=== PATIENT | female | born 1995 | race African-American/Black ===

== ENCOUNTER 2020-04-10 07:11 | Emergency (ER) | payer MEDICARE, MEDICAID, SELFPAY ==
--- NOTE | ~2020-04-10 | XR_ITS ---
EXAMINATION: XR chest 2V EXAM DATE: 04/10/2020 08:30 INDICATION: Midsternal chest pain. TECHNIQUE: Frontal and lateral projections of the chest obtained and reviewed. Comparison is made to prior examination from 08/13/2018. FINDINGS: The lungs are clear. There are no pleural effusions. The cardiomediastinal silhouette is within normal limits. There is no pneumothorax suspected. The bones and soft tissues are unremarkab le. There is no significant interval change. IMPRESSION: No acute cardiopulmonary findings. Reviewed, dictated and finalized at location B.
[2020-04-10 07:19] VITALS: BP 137/80; PULSE 91; PULSE 93; RESP 21; TEMP 36.9; O2SAT 100
--- NOTE | 2020-04-10 07:34 | ED.CHESTPAIN ---
HPI - Chest Pain General Chief Complaint: Chest Pain Stated Complaint: cp Time Seen by Provider: 04/10/20 07:33 Source: patient Mode of arrival: ambulatory Limitations: no limitations History of Present Illness HPI narrative: Patient is a 24-year-old female with a history of type 1 diabetes who presents for evaluation of chest pain. Patient reports a 72-hour history of constant chest pain, dull and aching in nature over the center of her chest. No jaw pain, arm pain, back pain, no ripping or tearing sensation to the flanks. No associated nausea, vomiting or diaphoresis. Patient reports mild dry cough without shortness of breath. No leg swelling or leg pain. Patient denies fever, chills, rhinorrhea. Her sugars have been well controlled, patient states that she was told to come in by her physician who recommended close follow-up. Patient denies recent fall or trauma, no recent heavy lifting. No recent long car or air travel. Related Data Allergies Allergy/AdvReac Type Severity Reaction Status Date / Time Sulfa (Sulfonamide Allergy Mild RASH Verified 05/16/19 17:15 Antibiotics) sulfamethoxazole Allergy Unknown Unknown Verified 04/10/20 07:24 trimethoprim Allergy Unknown Unknown Verified 04/10/20 07:24 Review of Systems Review of Systems: Narrative: CONSTITUTIONAL: Denies fever, chills, or sweats. EYES: Denies visual changes, redness, or discharge. ENT: Denies rhinorrhea, congestion, sore throat, or otalgia. CARDIOVASCULAR: Reports central chest pain, denies palpitations or edema RESPIRATORY: Reports dry cough without shortness of breath GASTROINTESTINAL: Denies abdominal pain, nausea, vomiting, or diarrhea. GENITOURINARY: Denies dysuria or hematuria. SKIN: Denies rash or itching. MUSCULOSKELETAL: Denies back pain, joint pain, or myalgia. NEUROLOGIC: Denies headache, numbness, or weakness. [facility] Past Medical History Medical History Type 1 diabetes Social History Social History (Updated 04/10/20 @ 08:03 by Mercedes Juan MD) Smoking status: Never smoker Alcohol intake: current Alcohol use details: Social Living arrangements: with family Gender identity (if verbalized by the patient): Female Exam Narrative: Exam Narrative: GENERAL: Awake, alert, conversant HEAD: Normocephalic, atraumatic. EYES: PERRLA and EOMI. ENT: Nares clear, no rhinorrhea or epistaxis. Mucous membranes moist. NECK: Supple. CHEST: No respiratory distress, breathing even and non labored, reproducible chest wall pain HEART: Regular rate, sinus rhythm, no murmur ABDOMEN:Non distended, non tender EXTREMITIES: Normal range of motion. No edema. SKIN: Warm, dry, no rash. NEURO:No focal deficits. Alert and oriented x3 Course Vital Signs Vital signs: Vital Signs Temperature 36.9 C 04/10/20 07:19 Pulse Rate 91 04/10/20 07:19 Respiratory Rate 21 H 04/10/20 07:19 Blood Pressure 137/80 04/10/20 07:19 Pulse Oximetry 100 04/10/20 07:19 Temperature 36.9 C 04/10/20 07:19 Pulse Rate 93 04/10/20 07:19 Respiratory Rate 21 H 04/10/20 07:19 Blood Pressure 137/80 04/10/20 07:19 Pulse Oximetry 100 04/10/20 07:19 MDM - Chest Pain MDM Narrative Medical decision making narrative: Patient's EKG and labs are without significant high risk changes. Cardiac risk factors reviewed. Patient is felt low risk for ACS and reasonable for further risk stratification testing as an outpatient. Pain was not sudden or maximal or onset without tearing or ripping quality. No other signs or symptoms to suggest aortic dissection. A low risk well's criteria is noted, PE is felt to be unlikely. Furthermore, d-dimer is not elevated. Pain is reproducible on exam making me believe this is most likely musculoskeletal or viral related. No severe COVID type features. No pneumonia seen on evaluation today. From a diabetes standpoint, patient has no signs or symptoms of DKA. No acidot
[2020-04-10 08:35] LABS: Basophils Percent Auto 0.6 % (0.2-1.2); Eosinophils Absolute Auto 0.1 K/mm3 (0-0.3); Eosinophils Percent Auto 1.6 % (0-4.4); Hematocrit 40.3 % (37.0-47.0); Hemoglobin 13.1 g/dL (12.0-15.0); Immature Granulocyte Absolute 0.02 K/mm3 (0.00-0.031); Immature Granulocyte Percent A 0.3 % (0-0.5); Lymphocytes Absolute Auto 2.86 K/mm3 (0.9-3.2); Lymphocytes Percent Auto 41.9 % (18.3-44.2); Mean Corpuscular HGB Conc 32.5 g/dl (32-36); Mean Corpuscular Hemoglobin 30.8 pg (26-34); Mean Corpuscular Volume 94.8 fl (80-100); Mean Platelet Volume 10.4 fl (7.4-10.4); Monocytes Absolute Auto 0.4 K/mm3 (0.1-0.6); Monocytes Percent Auto 5.6 % (2.6-8.5); Neutrophils Absolute Auto 3.4 K/mm3 (1.3-6.7); Platelet Count Result 367 k/mm3 (150-375); Red Blood Count 4.25 M/mm3 (4.2-5.4); Red Cell Distribution Width 12.8 % (11.5-14.5); White Blood Count 6.8 K/mm3 (4.5-10.0)
[2020-04-10] MEDS: ACETAMINOPHEN 500 MG TABLET 1000 MG PO (08:36)
[2020-04-10] MEDS: ASPIRIN 81 MG CHEWABLE TABLET 324 MG PO (08:36)
[2020-04-10 08:46] LABS: INR 0.9; Partial Thromboplastin Time 25.4 SECONDS (22.3-36.8); Prothrombin Time 12.2 Seconds (11.1-14.7)
[2020-04-10 08:49] LABS: D Dimer 0.32 ug/mL (<0.48)
[2020-04-10 08:50] LABS: Alanine Aminotransferase 17 U/L (4-35); Alkaline Phosphatase 86 U/L (38-126); Anion Gap 8 mmol/L (8-16); Aspartate Amino Transferase 19 U/L (14-36); Bilirubin,Total 0.2 mg/dL (0.2-1.3); Blood Urea Nitrogen 12 mg/dL (7-17); Calcium 9.3 mg/dL (8.4-10.2); Carbon Dioxide 23 mmol/L (22-30); Chloride 103 mmol/L (98-107); Estimated CRCL calculation 157 ml/min; Estimated Glomerular Filt Rate > 60; Glucose 158 mg/dL (65-105); Lipase 88 U/L (23-300); Sodium 134 mmol/L (137-145)
[2020-04-10 09:00] LABS: Troponin I < 0.012 ng/mL (0.000-0.034)
--- NOTE | 2020-04-10 09:39 | ECG_ITS ---
Measurements Intervals [place] Rate: 88 P: 20 NE: 164 QRS: 40 QRSD: 83 T: 2 QT: 340 QTc: 413 Interpretive Statements SINUS RHYTHM NONSPECIFIC T-WAVE ABNORMALITY- INFERIOR LEADS BASELINE ARTIFACT- I, II, III, AVR, AVL, AVF BORDERLINE ECG Electronically Signed On 04-10-2020 10:10:06 CDT by Danny Harden D.O.
== END 2020-04-10 10:05 | disposition home or self-care (01) ==
PROVIDERS: Emergency Provider Emergency Medicine; PCP Registered Nurse
DX: R07.89 Other chest pain (principal); E10.9 Type 1 diabetes mellitus without complications
CPT/HCPCS: 36415; 71046; 80053; 83690; 84484; 85025; 85380; 85610; 85730; 99284; A9270

== ENCOUNTER 2020-07-04 06:10 | Emergency (ER) | payer OTHER, MEDICARE, MEDICAID, SELFPAY ==
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
[2020-07-04 06:12] VITALS: BP 132/82; PULSE 80; RESP 16; TEMP 36.6; O2SAT 100
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
[2020-07-04] MEDS: IBUPROFEN 400 MG TABLET 800 MG PO (07:00)
== END 2020-07-04 07:20 | disposition home or self-care (01) ==
PROVIDERS: Emergency Provider Emergency Medicine; PCP Registered Nurse
DX: S16.1XXA Strain of muscle, fascia and tendon at neck level, initial encounter (principal); S50.02XA Contusion of left elbow, initial encounter; S80.02XA Contusion of left knee, initial encounter; E10.9 Type 1 diabetes mellitus without complications; V49.50XA Passenger injured in collision with unspecified motor vehicles in traffic accident, initial encounter
CPT/HCPCS: 72040; 73080; 73562; 99284; A9270

== ENCOUNTER 2020-11-01 22:08 | Inpatient (IN) | payer MEDICARE, MEDICAID, SELFPAY ==
--- NOTE | ~2020-11-01 | US_ITS ---
EXAMINATION: US venous doppler [facility] DATE: 11/03/2020 09:53 INDICATION: Hemoptysis TECHNIQUE: Grayscale ultrasound images without and with compression and Doppler ultrasound images of the bilateral lower extremity veins were obtained. COMPARISON: None. FINDINGS: The visualized portions of right common femoral vein, profunda (deep) femoral vein, femoral vein, pop liteal vein, posterior tibial veins, peroneal veins, gastrocnemius vein and greater saphenous vein ou tflow are patent. The visualized portions of left common femoral vein, profunda femoral vein, femoral vein, popliteal v ein, posterior tibial veins, peroneal veins, gastrocnemius vein and greater saphenous vein outflow ar e patent. IMPRESSION: 1. No deep venous thrombosis in either lower limb. Reviewed, dictated and finalized at location A.
--- NOTE | ~2020-11-01 | CT_ITS ---
EXAMINATION: CTA chest PE protocol DATE: 11/03/2020 08:03 INDICATION: Hemoptysis TECHNIQUE: Computed tomography (CT) pulmonary angiogram of the chest was performed with 100 mL Omnipa que-350 intravenous contrast. Additional 3D reconstructions utilizing coronal maximum intensity proje ction (MIP) were performed. Automated exposure control and iterative reconstruction technique were em ployed. The dose-length product was 853.47 mGy-cm. COMPARISON: None FINDINGS: Good contrast opacification of the pulmonary arteries. There is mild streak artifact from dense contr ast in the superior vena cava and right atrium. Mild scattered respiratory motion artifact. Together this mild to moderately decreases sensitivity and specificity, primarily in the smaller subsegmental pulmonary arteries. There appear to be filling defects in a few of the subsegmental pulmonary arterie s in the posterior and lateral basilar segments of the left lower lobe suspicious for pulmonary embol i. No other suspected pulmonary emboli identified. Mild peripheral opacities in the dependent lower l obes and superior segment of the right lower lobe which includes some linear discoid atelectasis. No pulmonary edema or pleural effusion. Heart size is normal. No pericardial effusion. Thoracic aorta is normal in caliber with no dissection. No pathologically enlarged thoracic lymphadenopathy. Again not ed is subtle decreased enhancement at the anteroinferior spleen with cut off of contrast within a cor responding distal branch of the splenic artery consistent with thrombosis and secondary splenic infar ct. There is a new trace amount of perisplenic fluid at the caudal tip of the spleen. Bones are unrem arkable. IMPRESSION: 1. A few likely subsegmental pulmonary emboli in the posterior and lateral basilar segments of the le ft lower lobe with small clot burden and no evident right heart strain. Sensitivity and specificity m ild to moderately limited primarily in some of the smaller subsegmental pulmonary arteries due to goo d but suboptimal contrast opacification and respiratory motion. 2. Mild peripheral airspace disease in the lateral lower lobes which could represent atelectasis, sma ll pulmonary infarcts, less likely aspiration or pneumonia or some combination thereof. 3. Thrombosis within a branch of the splenic artery with infarct of a small segment of the anteroinfe rior spleen and trace amount of likely reactive perisplenic fluid. Reviewed, dictated and finalized at location A. IMPRESSION: 1. A few likely subsegmental pulmonary emboli in the posterior and lateral basi lar segments of the left lower lobe with small clot burden and no evident right heart strain. Sensitivity and specificity mild to moderately limited primarily in some of the smaller subsegmental pulmonary arteries due to good but subopti mal contrast opacification and respiratory motion. 2. Mild peripheral airspace disease in the lateral lower lobes which could repr esent atelectasis, small pulmonary infarcts, less likely aspiration or pneumoni a or some combination thereof. 3. Thrombosis within a branch of the splenic artery with infarct of a small seg ment of the anteroinferior spleen and trace amount of likely reactive perisplen ic fluid.
--- NOTE | ~2020-11-01 | CT_ITS ---
EXAMINATION: CTA chest PE abdomen pel DATE: 11/02/2020 00:37 INDICATION: Hemoptysis and shortness of breath TECHNIQUE: Computed tomography (CT) pulmonary angiogram of the chest was performed with 100 mL Omnipa que-350 intravenous contrast. Additional 3D reconstructions utilizing coronal maximum intensity proje ction (MIP) were performed. CT of the abdomen and pelvis was performed with intravenous contrast util izing the same contrast bolus following a short delay. Automated exposure control and iterative recon struction technique were employed. The dose-length product was 2429.03 mGy-cm. COMPARISON: 07/15/2018 FINDINGS: Chest: Poor contrast opacification of the pulmonary arteries with the peak of the contrast bolus having pass ed into the pulmonary veins, left heart and aorta. This significantly decreases sensitivity in the ma in and left and right main pulmonary arteries and rendered more peripheral evaluation essentially non diagnostic. Lungs are clear with no pneumonia or other airspace opacities, pulmonary edema or pleural effusion. Heart size is normal. No pericardial effusion. Thoracic aorta is normal in caliber with no dissection. No pathologically enlarged thoracic lymphadenopathy. Bones are unremarkable. Abdomen/pelvis: Liver, gallbladder, pancreas, bilateral adrenal glands and kidneys are normal. Geographic region of a bsent enhancement involving the anteroinferior spleen consistent with splenic infarct, likely recent with no evident associated atrophy. Bowels including the appendix are normal. 4.0 cm left adnexal cys t. Bladder, anteverted uterus and right adnexa are normal. No free intraperitoneal gas or fluid. No p athologically enlarged abdominal or pelvic lymphadenopathy. Bones are unremarkable. IMPRESSION: 1. Markedly limited evaluation for pulmonary embolus and with decreased sensitivity in the central pu lmonary arteries with no definitive pulmonary embolism and essentially nondiagnostic in the lobar and more peripheral pulmonary arteries due to poor timing of the contrast bolus. No other evident cardio pulmonary disease. 2. Likely acute or subacute infarct at the anteroinferior spleen. 3. 4.0 cm left adnexal cyst. Reviewed, dictated and finalized at location A. IMPRESSION: 1. Markedly limited evaluation for pulmonary embolus and with decreased sensiti vity in the central pulmonary arteries with no definitive pulmonary embolism an d essentially nondiagnostic in the lobar and more peripheral pulmonary arteries due to poor timing of the contrast bolus. No other evident cardiopulmonary dis ease. 2. Likely acute or subacute infarct at the anteroinferior spleen. 3. 4.0 cm left adnexal cyst.
[2020-11-01 22:10] VITALS: BP 163/78; PULSE 88; RESP 16; TEMP 36.6; O2SAT 100
[2020-11-01 22:32] LABS: Basophils Percent Auto 0.4 % (0.2-1.2); Eosinophils Absolute Auto 0.1 K/mm3 (0-0.3); Hematocrit 40.3 % (37.0-47.0); Hemoglobin 13.1 g/dL (12.0-15.0); Immature Granulocyte Absolute 0.03 K/mm3 (0.00-0.031); Immature Granulocyte Percent A 0.3 % (0-0.5); Lymphocytes Absolute Auto 3.01 K/mm3 (0.9-3.2); Lymphocytes Percent Auto 33.4 % (18.3-44.2); Mean Corpuscular HGB Conc 32.5 g/dl (32-36); Mean Corpuscular Hemoglobin 30.3 pg (26-34); Mean Corpuscular Volume 93.3 fl (80-100); Mean Platelet Volume 9.9 fl (7.4-10.4); Monocytes Absolute Auto 0.6 K/mm3 (0.1-0.6); Monocytes Percent Auto 6.4 % (2.6-8.5); Neutrophils Absolute Auto 5.3 K/mm3 (1.3-6.7); Neutrophils Percent Auto 58.5 % (45.5-73.1); Platelet Count Result 357 k/mm3 (150-375); Red Blood Count 4.32 M/mm3 (4.2-5.4); Red Cell Distribution Width 12.7 % (11.5-14.5)
[2020-11-01 22:43] LABS: Alanine Aminotransferase 22 U/L (4-35); Albumin Level 4.2 g/dL (3.5-5.1); Alkaline Phosphatase 86 U/L (38-126); Anion Gap 7 mmol/L (8-16); Aspartate Amino Transferase 25 U/L (14-36); Bilirubin,Total 0.2 mg/dL (0.2-1.3); Blood Urea Nitrogen 10 mg/dL (7-17); Calcium 9.3 mg/dL (8.4-10.2); Carbon Dioxide 28 mmol/L (22-30); Chloride 103 mmol/L (98-107); Estimated CRCL calculation 109 ml/min; Estimated Glomerular Filt Rate > 60; Glucose 206 mg/dL (65-105); Lipase 97 U/L (23-300); Potassium 3.6 mmol/L (3.4-5.0); Sodium 138 mmol/L (137-145)
[2020-11-02] VITALS (10 sets, daily range): BP systolic 114–150; BP diastolic 52–91; PULSE 69–89; RESP 16–20; TEMP 36.4–36.9; O2SAT 96–100
[2020-11-02 00:03] LABS: Add Urine Microscopic? YES; Appearance Urine Cloudy (Clear); Bilirubin Urine Negative (Negative); Blood Urine Negative (Negative); Color Urine Yellow (Yellow); Glucose Urine UA 1+ mg/dL (Negative); Ketones Urine Negative (Negative); Leukocyte Esterase Ur Negative LEU/UL (Negative); Mucus Urine Rare /lpf; Nitrate Urine Negative (Negative); Protein Urine 3+ mg/dL (Negative); RBC Urine 0-2 /hpf (0-2); Squamous Epithelial Cell Urine Moderate /hpf (Few); Urobilinogen Urine Negative mg/dL (<2.0); WBC Urine 0-3 /hpf
[2020-11-02 00:22] LABS: Specific Grav Ur 1.031 (1.001-1.035)
--- NOTE | 2020-11-02 01:57 | ED.GENADULT ---
HPI - General Adult General Chief complaint: Fever Stated complaint: chills, fever, coughing up blood Time Seen by Provider: 11/01/20 23:37 History of Present Illness HPI narrative: Patient is a 25-year-old female who presents the emergency department with chief complaint of fever chills body aches cough has been productive of bloody sputum and abdominal pain. Patient states his symptoms been going on for 1 day reports that they are not improved by anything reports has been taking Tylenol for the body aches and fever and that has not been improving her symptoms. Patient states that she is concerned that she may have COVID-19 but was also concerned when she noticed that when she would cough there was blood in the sputum. Patient states that she is not had any diarrhea, but that has had vomiting and nausea. Related Data Allergies Allergy/AdvReac Type Severity Reaction Status Date / Time Sulfa (Sulfonamide Allergy Mild RASH Verified 05/16/19 17:15 Antibiotics) sulfamethoxazole Allergy Unknown Unknown Verified 04/10/20 07:24 trimethoprim Allergy Unknown Unknown Verified 04/10/20 07:24 Review of Systems Review of Systems: Narrative: A 10 system review of systems was completed on the patient and is negative except for what is stated in the HPI. Nursing and ancillary documentation was reviewed. [facility] Past Medical History Medical History (Updated 11/02/20 @ 02:52 by Nathan Villa MD) Type 1 diabetes Social History Social History Smoking status: Never smoker Alcohol intake: current Gender identity (if verbalized by the patient): Female Exam Narrative: Exam Narrative: GENERAL: Well-appearing, well-nourished, and in no acute distress. HEAD: Normocephalic, atraumatic. EYES: PERRLA and EOMI. ENT: Nares clear, no rhinorrhea or epistaxis. Mucous membranes moist. NECK: Supple. CHEST: Clear to auscultation. No respiratory distress. HEART: Regular rate and rhythm. No murmur heard. Normal peripheral pulses. ABDOMEN: Soft, nontender, nondistended, normal active bowel sounds. EXTREMITIES: Normal range of motion. No edema. SKIN: Warm, dry, no rash. NEURO: No focal deficits. Alert and oriented x3. PSYCH: Normal mood and affect. Course Course Emergency Course: CTA of the chest with an abdomen pelvis CT showed no evidence of pulmonary embolism no evidence of pneumonia. CT scan of the abdomen pelvis showed some fluid in the small bowel consistent with possible enterocolitis. There also was evidence of a possible splenic infarct in the anterior inferior portion of the spleen Vital Signs Vital signs: Vital Signs Temperature 36.6 C 11/01/20 22:10 Pulse Rate 88 11/01/20 22:10 Respiratory Rate 16 11/01/20 22:10 Blood Pressure 163/78 H 11/01/20 22:10 Pulse Oximetry 100 11/01/20 22:10 Temperature 36.6 C 11/01/20 22:10 Pulse Rate 86 11/02/20 01:47 Respiratory Rate 18 11/02/20 01:47 Blood Pressure 118/82 11/02/20 01:47 Pulse Oximetry 97 11/02/20 01:47 Medical Decision Making Vital Signs Vital Signs: Vital Signs Temperature 36.6 C 11/01/20 22:10 Pulse Rate 88 11/01/20 22:10 Respiratory Rate 16 11/01/20 22:10 Blood Pressure 163/78 H 11/01/20 22:10 Pulse Oximetry 100 11/01/20 22:10 Temperature 36.6 C 11/01/20 22:10 Pulse Rate 86 11/02/20 01:47 Respiratory Rate 18 11/02/20 01:47 Blood Pressure 118/82 11/02/20 01:47 Pulse Oximetry 97 11/02/20 01:47 Lab Data Result diagrams: 11/01/20 22:18 11/01/20 22:18 Labs: Lab Results 11/01/20 11/01/20 11/01/20 Range/Units 22:18 22:18 23:51 WBC 9.0 (4.5-10.0) K/mm3 RBC 4.32 (4.2-5.4) M/mm3 Hgb 13.1 (12.0-15.0) g/dL Hct 40.3 (37.0-47.0) % MCV 93.3 (80-100) fl MCH 30.3 (26-34) pg MCHC 32.5 (32-36) g/dl RDW 12.7 (11.5-14.5) % Plt Count 357 (150-375) k
--- NOTE | 2020-11-02 02:42 | ECG_ITS ---
Measurements Intervals [place] Rate: 78 P: 22 HI: 166 QRS: 50 QRSD: 95 T: 17 QT: 366 QTc: 417 Interpretive Statements SINUS RHYTHM NORMAL ECG Electronically Signed On 11-02-2020 17:41:03 CDT by Danny Harden D.O.
[2020-11-02] MEDS: ENOXAPARIN 120 MG/0.8 ML SYRINGE 115 MG SUB-Q ×2 (03:48→17:06)
--- NOTE | 2020-11-02 05:30 | ADMGEN ---
This patient, Shayy Carver, was admitted to [facility] Surg Room 320-01 at 4:40. Patient/family oriented to hospital policies and general routines including ID bracelet, bed and alarms, visiting hours, pain management, procedures, bathroom and other care routines, personal items, smoking policy, room service/diet, and visiting hours. Information on how to activate the Rapid Response Team has been discussed. Patient/Family are encouraged to report perceived risks to care and to ask questions if they do not understand what they are told or what they should do.
[2020-11-02] MEDS: ACETAMINOPHEN 325 MG TABLET 650 MG PO (05:56)
[2020-11-02] MEDS: MORPHINE SULFATE (*CRX) 2 MG/ML INJ IV PUSH ×2 (06:44→20:58)
[2020-11-02 07:38] LABS: Glucose Point of Care 204 (65-105)
[2020-11-02 11:23] LABS: CRP 0.7 mg/dL (<1.0)
[2020-11-02 12:38] LABS: Glucose Point of Care 172 (65-105)
[2020-11-02] MEDS: INSULIN ASPART (*BKC) 100 UNITS/ML 10 UNITS SUB-Q (12:45)
--- NOTE | 2020-11-02 15:47 | PM.IMHP ---
H&P: HPI History of Present Illness Date/Time: 11/02/20 15:47 Chief Complaint: Patient is a 25-year-old female with a history of hyperlipidemia and type 1 diabetes who presented emergency room for intense abdominal pain rating it 10 at 10. Patient states she went to bed night in her normal state of health and woke up in the middle night with aching significant abdominal pain that started in the epigastric area and radiated to the left upper quadrant that she rates a 10/10. It caused her to have severe nausea and vomiting as well as diarrhea. The diarrhea started as a dark brown color and then turned into yellow. She thought maybe she had the stomach flu but no one else was sick. She says her abdominal pain continues and worsen every time she eats. Nothing makes it feel better. She continues to have a 10/10 pain. Of note, after she got done vomiting she coughed up one episode of a 'handful' of liquid bright red blood. She said there was no sputum and she was sure it was not vomit. She denies aspiration. She has had no cough or shortness of breath since. She denies any contact with anyone with COVID-19 or TB. She has had fevers and chills that has accompanied this as well as a decreased appetite because it makes the pain worse when she eats. She denies night sweats, cough, long trips, concern for HIV, personal or family history of blood clots, travel outside [place], miscarriages, sickle cell disease, autoimmune diseases, or chest pain. Review of Systems Review of Systems: All systems reviewed & are unremarkable except as noted in HPI and below PMFSH Past Medical History Medical History (Updated 11/02/20 @ 15:55 by Lo Salas PA-C) History of hyperlipidemia Type 1 diabetes Family History Family History Mother Diabetes mellitus Father Diabetes mellitus Mother No problems noted. Sibling Diabetes mellitus Other Prostate carcinoma Social History Social History (Updated 11/02/20 @ 15:58 by Lo Salas PA-C) Social History: Patient does not smoke cigarettes or marijuana, drugs and does not drink alcohol. She is unemployed. She would like to be a full code and if she is unable to make decisions for herself she elects her significant other, Jenni, to make decisions for her. Smoking status: Never smoker Alcohol intake: never Substance use: never Gender identity (if verbalized by the patient): Female Spiritual care concerns: No Meds Home Medications and Allergies Home Medications Medication Instructions Recorded Confirmed Type atorvastatin 80 mg PO HS 11/02/20 11/02/20 History cholecalciferol (vitamin D3) 1,250 mcg PO WEEKLY 11/02/20 11/02/20 History insulin aspart U-100 [Novolog 20 unit SUBCUT TID 11/02/20 11/02/20 History Flexpen U-100 Insulin] insulin glargine [Basaglar KwikPen 36 unit SUBCUT HS 11/02/20 11/02/20 History U-100 Insulin] linaclotide [Linzess] 145 mcg PO DAILY 11/02/20 11/02/20 History tizanidine 4 mg PO DAILY PRN 11/02/20 11/02/20 History Allergies Allergy/AdvReac Type Severity Reaction Status Date / Time Sulfa (Sulfonamide Allergy Mild RASH Verified 05/16/19 17:15 Antibiotics) sulfamethoxazole Allergy Unknown Unknown Verified 04/10/20 07:24 trimethoprim Allergy Unknown Unknown Verified 04/10/20 07:24 Vital Signs Vital Signs - 24 hr 11/01/20 22:10 11/02/20 01:47 11/02/20 03:50 Temperature 97.9 F Pulse Rate 88 86 69 Respiratory Rate 16 18 16 Blood Pressure 163/78 H 118/82 127/71 Pulse Oximetry 100 97 96 11/02/20 04:00 11/02/20 06:00 11/02/20 08:00 Temperature 97.5 F L 97.9 F Pulse Rate 72 81 83 Respiratory Rate 20 18 Blood Pressure 122/79 126/69 Pulse Oximetry 100 100 11/02/20 09:32 11/02/20 12:00 Temperature 97.8 F Pulse Rate 73 Respiratory Rate 16 Blood Pressure 114/52 L Pulse Oximetry 98 99 Exam Narrative: Exam Na
[2020-11-02 17:08] LABS: Glucose Point of Care 155 (65-105)
[2020-11-02 17:43] LABS: Monoscreen Negative (Negative); Negative Monotest Control Negative (Negative); Positive Monotest Control Positive (Positive)
[2020-11-02 17:58] LABS: HIV 1/2 Ab P24 Ag Result Negative (Negative)
[2020-11-02 19:44] LABS: SARS-CoV-2 RNA PCR Negative
[2020-11-02] MEDS: ATORVASTATIN 40 MG TABLET 80 MG PO (20:44)
[2020-11-02] MEDS: INSULIN GLARGINE (*BKC) 100 UNITS/ML 25 UNITS SUB-Q (20:49)
[2020-11-02 21:18] LABS: Glucose Point of Care 234 (65-105)
[2020-11-03] VITALS (8 sets, daily range): BP systolic 120–158; BP diastolic 61–84; PULSE 73–89; RESP 16–18; TEMP 36.3–36.6; O2SAT 98–100
[2020-11-03] MEDS: MORPHINE SULFATE (*CRX) 2 MG/ML INJ IV PUSH ×3 (02:05→13:54)
[2020-11-03] MEDS: ENOXAPARIN 120 MG/0.8 ML SYRINGE 115 MG SUB-Q ×2 (05:27→17:03)
[2020-11-03 07:55] LABS: Glucose Point of Care 164 (65-105)
[2020-11-03 07:57] LABS: Hematocrit 36.2 % (37.0-47.0); Hemoglobin 11.6 g/dL (12.0-15.0); Mean Corpuscular Hemoglobin 30.2 pg (26-34); Mean Corpuscular Volume 94.3 fl (80-100); Mean Platelet Volume 10.1 fl (7.4-10.4); Platelet Count Result 296 k/mm3 (150-375); Red Blood Count 3.84 M/mm3 (4.2-5.4); Red Cell Distribution Width 12.8 % (11.5-14.5); White Blood Count 7.5 K/mm3 (4.5-10.0)
[2020-11-03 08:07] LABS: Anion Gap 3 mmol/L (8-16); Blood Urea Nitrogen 8 mg/dL (7-17); Calcium 8.4 mg/dL (8.4-10.2); Carbon Dioxide 29 mmol/L (22-30); Chloride 105 mmol/L (98-107); Estimated CRCL calculation 137 ml/min; Estimated Glomerular Filt Rate > 60; Glucose 161 mg/dL (65-105); Potassium 3.8 mmol/L (3.4-5.0); Sodium 137 mmol/L (137-145)
[2020-11-03] MEDS: PANTOPRAZOLE 40 MG TABLET PO (08:32)
[2020-11-03] MEDS: ACETAMINOPHEN 325 MG TABLET 650 MG PO (11:21)
[2020-11-03 11:38] LABS: Glucose Point of Care 159 (65-105)
[2020-11-03 13:20] LABS: Hematocrit 36.2 % (37.0-47.0); Hemoglobin 11.9 g/dL (12.0-15.0)
--- NOTE | 2020-11-03 14:29 | PM.IMPN ---
Progress Note: A&P Assessment and Plan (1) Pulmonary emboli: Code(s): I26.99 - Other pulmonary embolism without acute cor pulmonale Status: Acute Assessment and Plan: CTA of the chest today showed segmental pulmonary emboli with small clot burden and no evidence of heart strain -I do suspect the airspace disease also noted is pulmonary infarcts. The patient had a subjective fever prior to coming and and this can be seen with infarctions. She has no fevers or chills since being here at the hospital -continue Lovenox for now and then transition to Eliquis closer to discharge. The patient is able to afford this as it is $4 with her insurance (2) Infarction of spleen: Code(s): D73.5 - Infarction of spleen Status: Acute Assessment and Plan: Noted on CT which shows Thrombosis within a branch of the splenic artery with infarct of a small segment of the anteroinferior spleen and trace amount of likely reactive perisplenic fluid. -unclear etiology at this time, suspect undiagnosed coagulopathy -await coagulopathy panel and hematology consult -Continue lovenox at this time and transition to Eliquis at discharge -Eliquis starter pack is $4 -Pt not on control or hormones -no afib on ekg and no hx of palpitations -likely the etiology of her pain (3) Nausea vomiting and diarrhea: Code(s): R11.2 - Nausea with vomiting, unspecified; R19.7 - Diarrhea, unspecified Status: Acute Assessment and Plan: Patient was admitted with nausea vomiting and diarrhea which has resolved -could be due to pain or gastroenteritis -she has no history of gastric ulcer, continue PPI -if this continues may consider EGD -Will monitor h&h and stools while on lovenox (4) Hemoptysis: Code(s): R04.2 - Hemoptysis Status: Acute Assessment and Plan: Noted on admission and she has had 1 episode while here -likely due to PE -await sputum culture -monitor h and h closely while on lovenox. (5) Person under investigation for COVID-19: Code(s): Z20.822 - Contact with and (suspected) exposure to COVID-19 Status: Acute Assessment and Plan: PCR negative (6) Type 1 diabetes: Code(s): E10.9 - Type 1 diabetes mellitus without complications Status: Acute Assessment and Plan: Last glucose 159 -patient is not really eating so I will hold her mealtime insulin but continue a high dose sliding scale that will correlate with her mealtime insulin she takes at home -continue Lantus as she is type 1 diabetic but decreased dose -adjust medications as needed -continue Accu-Cheks Time Spent With Patient Time with patient: 25 - 35 minutes Subjective Date/time seen: 11/03/20 14:29 Interval history: Pt is a 25 y/o here for hemoptysis and abdominal pain found to have PE and splenic infarction. Pt was seen today and is still in pain in the LUQ. She coughed up a little blood today. She feels SOB at rest and with activity and it pains her to take a big breath because of her stomach. She was able to eat a salad today but did not tolerate a cheese burger last night. She denies CP, further fevers, chills, leg swelling, or headache. Review of Systems Review of Systems: All systems reviewed & are unremarkable except as noted in HPI and below Exam Narrative: Exam Narrative: General:Well developed well nourished patient resting comfortably in bed in no acute distress HEENT: Normocephalic, atraumatic, PERRL, Sclerae anicteric, oral mucosa moist. No cervical lymphadenopathy Neck: Supple Resp: CTA but taking shallow breaths Heart: RRR with no murmurs. EKG reviewed normal sinus rhythm no abnormalities. tele without abnormal reviews Abd: Soft, nondistended. Significant pain to palpation to the epigastric and left upper quadrant area. Skin: Warm and dry Extremities: No swelling, erythema or pain to palpation skin: No rashes or petechiae Neuro: Alert and
[2020-11-03 16:30] LABS: Glucose Point of Care 182 (65-105)
[2020-11-03] MEDS: MORPHINE SULFATE (*CRX) 2 MG/ML INJ 1 MG IV PUSH (19:48)
[2020-11-03] MEDS: ATORVASTATIN 40 MG TABLET 80 MG PO (19:57)
[2020-11-03] MEDS: INSULIN GLARGINE (*BKC) 100 UNITS/ML 25 UNITS SUB-Q (20:01)
[2020-11-03] MEDS: HYDROcodone/acetaminophen (*CRX) 10-325 MG TABLET 1 TAB PO (21:48)
[2020-11-03 22:18] LABS: Glucose Point of Care 219 (65-105)
[2020-11-04 06:00] VITALS: BP 119/66; PULSE 80; RESP 16; TEMP 36.3; O2SAT 98
[2020-11-04] MEDS: ENOXAPARIN 120 MG/0.8 ML SYRINGE 115 MG SUB-Q (06:14)
[2020-11-04 06:58] LABS: Alanine Aminotransferase 17 U/L (4-35); Albumin Level 3.4 g/dL (3.5-5.1); Alkaline Phosphatase 79 U/L (38-126); Anion Gap 2 mmol/L (8-16); Aspartate Amino Transferase 18 U/L (14-36); Bilirubin,Total 0.4 mg/dL (0.2-1.3); Blood Urea Nitrogen 9 mg/dL (7-17); Calcium 8.6 mg/dL (8.4-10.2); Carbon Dioxide 30 mmol/L (22-30); Chloride 105 mmol/L (98-107); Estimated CRCL calculation 121 ml/min; Estimated Glomerular Filt Rate > 60; Glucose 145 mg/dL (65-105); Magnesium 1.5 mg/dL (1.6-2.3); Sodium 137 mmol/L (137-145)
[2020-11-04 07:14] LABS: Hematocrit 36.4 % (37.0-47.0); Hemoglobin 11.5 g/dL (12.0-15.0); Mean Corpuscular HGB Conc 31.6 g/dl (32-36); Mean Corpuscular Hemoglobin 30.2 pg (26-34); Mean Corpuscular Volume 95.5 fl (80-100); Platelet Count Result 293 k/mm3 (150-375); Red Blood Count 3.81 M/mm3 (4.2-5.4); Red Cell Distribution Width 12.6 % (11.5-14.5)
[2020-11-04 07:51] LABS: Glucose Point of Care 145 (65-105)
[2020-11-04] MEDS: MAGNESIUM OXIDE 400 MG TABLET PO (09:10)
[2020-11-04] MEDS: PANTOPRAZOLE 40 MG TABLET PO (09:11)
[2020-11-04] MEDS: HYDROcodone/acetaminophen (*CRX) 10-325 MG TABLET 1 TAB PO (09:16)
[2020-11-04 11:42] LABS: Glucose Point of Care 179 (65-105)
--- NOTE | 2020-11-04 16:05 | PM.DS ---
DS: Admitting Diagnosis Admitting Diagnosis Admitting Diagnosis: splenic infarction DS: Discharge Diagnosis Discharge Diagnosis (1) Pulmonary emboli: Code(s): I26.99 - Other pulmonary embolism without acute cor pulmonale Status: Acute Assessment and Plan: CTA of the chest showed segmental pulmonary emboli with small clot burden and no evidence of heart strain -I do suspect the airspace disease also noted is pulmonary infarcts. The patient had a subjective fever prior to coming and and this can be seen with infarctions. She has no fevers or chills since being here at the hospital -she was transition to Eliquis at discharge which she can afford -coagulopathy workup underway, she saw Dr. Davila while hospitalized and he agreed with current plan and is going to follow-up with her outpatient -she had improved shortness of breath and hemoptysis. No evidence of heart strain on chest x-ray or EKG. Educated to come back to emergency room if she has chest pain (2) Infarction of spleen: Code(s): D73.5 - Infarction of spleen Status: Acute Assessment and Plan: Noted on CT which shows Thrombosis within a branch of the splenic artery with infarct of a small segment of the anteroinferior spleen and trace amount of likely reactive perisplenic fluid. -unclear etiology at this time, suspect undiagnosed coagulopathy -await coagulopathy panel and follow-up with hematology -Continue Eliquis at discharge -Eliquis starter pack is $4 -Pt not on control or hormones -no afib on ekg and no hx of palpitations -pain improving, educated about taking narcotics (3) Nausea vomiting and diarrhea: Code(s): R11.2 - Nausea with vomiting, unspecified; R19.7 - Diarrhea, unspecified Status: Acute Assessment and Plan: Patient was admitted with nausea vomiting and diarrhea which has resolved -could be due to pain or gastroenteritis -she has no history of gastric ulcer, continue PPI outpatient and follow-up with GI if she continues to have abdominal pain with eating -H&H has been stable (4) Hemoptysis: Code(s): R04.2 - Hemoptysis Status: Acute Assessment and Plan: Noted on admission and she has had 1 episode while here -likely due to PE -sputum culture unable to be obtained -hemoglobin stable on anticoagulation (5) Person under investigation for COVID-19: Code(s): Z20.822 - Contact with and (suspected) exposure to COVID-19 Status: Acute Assessment and Plan: PCR negative (6) Type 1 diabetes: Code(s): E10.9 - Type 1 diabetes mellitus without complications Status: Acute Assessment and Plan: Last glucose 179 -continue home medications -educated on the signs and symptoms of hypoglycemia DS: Summary Hospital Course Hospital Course: patient is a 25-year-old female with a history of diabetes who presented emergency room for abdominal pain, fevers, chills and cough. Vitals in the ER were temperature 36.6? C, pulse 88, respiratory rate 16, blood pressure 163/78, pulse ox 100 on room air. CBC and BMP within normal limit with exception of random glucose 206 consistent with her diabetes. UA negative. test negative. Initial CTA of the chest abdomen pelvis showed limited evaluation for PE but did show acute or subacute infarct of the spleen with 4 cm left adnexal cyst. She was admitted to the hospitalist service and started on Lovenox. Her pain continued but improved with time. Her blood pressures range from high to normal and I suspect her blood pressure was high due to pain and not significant hypertension. At discharge her blood pressure was 119/66. During her hospital stay she underwent a repeat CTA of her chest which showed a few likely segmental PE with airspace disease likely pulmonary infarct with thrombosis of the splenic artery. Coagulopathy workup was ordered and is still pending. Hematology was consulted and
--- NOTE | 2020-11-04 18:04 | PDONCCN ---
HPI - Date of Consult Date/Time: 11/04/20 18:04 Requesting Physician: Lo Salas PA-C Primary Care Provider: Kaelyn Bains, HEMP [employer] OFF - Consult Narrative Reason for consult: Hypercoagulable state with recent pulmonary embolism. Narrative: Shayy Carver is a 25 year old female without any prior history of thromboembolic events and history of type 1 diabetes and obesity he came into the hospital with intense abdominal and chest pain along with some shortness of breath and pleuritic chest pain. She just recently came back from 3 hour flight from [place]. She denies any recent surgery or injury. She denies any use of hormone therapy. She has not been quite active and gained almost 17 lb in the last couple of months. CT chest showed subsegmental pulmonary embolism left lower lobe with small clot burden and no evidence of right heart strain. Thrombosis within branch of the splenic artery with infarction of a small segment of anterior inferior spleen. Doppler studies were negative for DVT. She was started on Eliquis with improvement in her chest pain and shortness of breath. Review of Systems - Review of Systems All systems reviewed & are unremarkable except as noted in HPI and [facility] Medical History: Medical History (Last Updated 11/02/20 @ 15:55 by Lo Salas PA-C) History of hyperlipidemia Type 1 diabetes Family History: Family History (Last Reviewed 11/02/20 @ 15:56 by Lo Salas PA-C) Mother Diabetes mellitus Father Diabetes mellitus Mother No problems noted. Sibling Diabetes mellitus Other Prostate carcinoma - Social History Social History: Social History (Last Updated 11/02/20 @ 15:58 by Lo Salas PA-C) Gender Identity: Gender identity (if verbalized by the patient): Female Alcohol Use: Alcohol intake: never Substance Use: Substance use: never Others: Spiritual care concerns: No Smoking Status: Smoking status: Never smoker Meds Home Medications Medication Instructions Recorded Confirmed Type Basaglar KwikPen U-100 Insulin 36 unit SUBCUT HS 11/02/20 11/02/20 History Linzess 145 mcg PO DAILY 11/02/20 11/02/20 History atorvastatin 80 mg PO HS 11/02/20 11/02/20 History cholecalciferol (vitamin D3) 1,250 mcg PO WEEKLY 11/02/20 11/02/20 History insulin aspart U-100 [Novolog 20 unit SUBCUT TID 11/02/20 11/02/20 History Flexpen U-100 Insulin] tizanidine 4 mg PO DAILY PRN 11/02/20 11/02/20 History apixaban [Eliquis DVT-PE Treat 30D See Rx Instructions .ROUTE 11/04/20 Rx Start] .COMPLEX #74 ea hydrocodone-acetaminophen 1 tablet PO Q6H PRN #20 tablet 11/04/20 Rx magnesium oxide [MagOx] 400 mg PO DAILY #30 tablet 11/04/20 Rx pantoprazole 20 mg PO QAM 42 Days #42 tablet 11/04/20 Rx Allergies Allergy/AdvReac Type Severity Reaction Status Date / Time Sulfa (Sulfonamide Allergy Mild RASH Verified 05/16/19 17:15 Antibiotics) sulfamethoxazole Allergy Unknown Unknown Verified 04/10/20 07:24 trimethoprim Allergy Unknown Unknown Verified 04/10/20 07:24 Results - Labs CBC & Chem 7: 11/04/20 06:32 11/04/20 06:33 Labs: Short CBC 11/04/20 Range/Units 06:32 WBC 6.0 (4.5-10.0) K/mm3 Hgb 11.5 L (12.0-15.0) g/dL Hct 36.4 L (37.0-47.0) % Plt Count 293 (150-375) k/mm3 BMP 11/04/20 06:33 Sodium 137 Potassium 4.0 Chloride 105 Carbon Dioxide 30 BUN 9 Creatinine 0.80 Glucose 145 H Calcium 8.6 Liver Function 11/04/20 Range/Units 06:33 Total Bilirubin 0.4 (0.2-1.3) mg/dL Direct Bilirubin 0.0 (0-0.3) mg/dL AST 18 (14-36) U/L ALT 17 (4-35) U/L Alkaline Phosphatase 79 (38-126) U/L Albumin 3.4 L (3.5-5.1) g/dL Assessment and Plan - Additional Plan Hypercoagulable state with recent diagnosis of pulmonary embolism. Patient is a 25-year-old obese female who just came back from [place] with 3 hours flight. She
[2020-11-05 19:53] LABS: Antithrombin III Activity 109 % normal (80-135)
[2020-11-06 05:15] LABS: Lupus dRVVT 1:1 Mix Interpreta Not Indicated; Lupus dRVVT Screen 43 sec (<=45); PTT-LA Screen 34 sec (<=40)
[2020-11-07 19:01] LABS: Anti Cardio Antibody IgM <12 MPL (<=12); Anti Cardiolipin Antibody IgA <11 APL (<=11); Anti Cardiolipin Antibody IgG <14 GPL (<=14)
[2020-11-08 11:40] LABS: Protein C Antigen 126 % (70-140)
[2020-11-09 21:01] LABS: Factor V (Leiden) Mutation NEGATIVE
[2020-11-12 12:37] LABS: Anti Nuclear Antibody Pattern Nuclear, Speckled; Anti Nuclear Antibody Titer 1:40 (Negative)
--- NOTE | 2020-11-12 13:15 | PC.NURSE ---
Protien C Funct activity elevated at 186. MTHFR heterozygous for c677T variant and for [id number] variant. LUNA Kaufman aware. Results faxed to Kaelyn Bains NP.
== END 2020-11-04 13:20 | disposition home or self-care (01) | DRG 299 ==
LOC: ANHED 11-02 02:52 → ANH3MEDSUR 11-02 03:37
PROVIDERS: Physician Assistant; Admitting Provider Internal Medicine; Emergency Provider Emergency Medicine; PCP Registered Nurse; Visit Provider Family Medicine
DX: I74.8 Embolism and thrombosis of other arteries (principal); I26.99 Other pulmonary embolism without acute cor pulmonale; R04.2 Hemoptysis; D68.9 Coagulation defect, unspecified; D73.5 Infarction of spleen; K52.9 Noninfective gastroenteritis and colitis, unspecified; Z20.828 Contact with and (suspected) exposure to other viral communicable diseases; E10.9 Type 1 diabetes mellitus without complications; E78.5 Hyperlipidemia, unspecified
CPT/HCPCS: 36415; 71275; 74177; 80048; 80053; 80076; 81001; 81025; 81241; 81291; 82948; 83690; 83735; 84443; 85014; 85018; 85025; 85027; 85300; 85302; 85303; 85306; 85613; 85660; 85730; 86038; 86039; 86140; 86147; 86308; 86703; 87040; 93005; 93970; 96372; 96374; 96376; 99285; A9270; C9803; G0378; G0432; J1650; J1815; J2270; Q9967; U0003; U0005

== ENCOUNTER 2021-01-06 14:52 | Outpatient (CLI) | payer MEDICARE, MEDICAID, SELFPAY ==
--- NOTE | 2021-01-06 | ECHO_ITS ---
Patient Info Name: Shayy Carver Age: 25 years : 1995 Gender: Female Ht: 67 in Wt: 250 lbs BSA: 2.37 m2 HR: 86 bpm BP: 134 / 88 mmHg Heart Rhythm: Sinus Rhythm Technical Quality: Fair Exam Date: 01/06/2021 3:32 PM Exam Location: [facility] Patient Status: Outpatient Admit Date: 01/06/2021 Staff Ordering Physician: Hipolito, Simón Beltre MD Sociology Faculty Member: Arely Rodriguez RDCS Attending Provider: Hipolito, Simón Beltre MD Referring Physician: Hipolito FERNÁNDEZ; Exam Type: CA echo doppler color flow Study Info Indications - splenic vein thrombosis Complete two-dimensional, color flow and Doppler transthoracic echocardiogram is performed. Summary 1. Complete two-dimensional, color flow and Doppler transthoracic echocardiogram is performed. 2. Left ventricular chamber dimension is normal. 3. Left ventricular systolic function is normal, estimated at 55-60%. 4. There is no increased left ventricular wall thickness. 5. The left ventricular diastolic function is normal. 6. There is mild mitral valve regurgitation. 7. There is mild tricuspid valve regurgitation. Left Ventricle Left ventricular chamber dimension is normal. Left ventricular systolic function is normal, estimated at 55-60%. There is no increased left ventricular wall thickness. The left ventricular diastolic function is normal. Right Ventricle Right ventricular chamber dimension is normal. Right ventricular systolic function is normal. Left Atria Left atrial chamber dimension is normal. Right Atria Right atrial chamber dimension is normal. Atrial Septum Intact interatrial septum visualized by color flow imaging. Aortic Valve The aortic valve is trileaflet. There is mild aortic valve sclerosis. There is no aortic valve stenosis. There is trace aortic valve regurgitation. Pulmonic Valve The pulmonic valve is normal. There is no pulmonic valve stenosis. There is trace pulmonic regurgitation. Mitral Valve The mitral valve has normal leaflets. There is no mitral valve stenosis. There is mild mitral valve regurgitation. Tricuspid Valve The tricuspid valve leaflets are normal. There is no significant tricuspid valve stenosis. There is mild tricuspid valve regurgitation. No pulmonary hypertension, estimated pulmonary arterial systolic pressure is 31 mmHg. Pericardium/Pleural The pericardium appears normal. There is no pericardial effusion. Inferior Vena Cava Normal inferior vena cava with >50% collapse upon inspiration consistent with normal right atrial pressure, 10 mmHg. Aorta The aortic root size at the sinus of Valsalva is normal. The prox ascending aorta size is normal. Left Ventricular Outflow Tract Name Value Normal LVOT 2D LVOT Diameter 2.0 cm LVOT Doppler LVOT Peak Gradient 6 mmHg LVOT Mean Gradient 3 mmHg LVOT VTI 23 cm LVOT VTI/AV VTI Ratio 1.0 LVOT Stroke Volume 70 ml LVOT CO
== END 2021-01-06 14:53 | disposition home or self-care (01) ==
PROVIDERS: PCP Registered Nurse; Visit Provider Internal Medicine
DX: I82.890 Acute embolism and thrombosis of other specified veins (principal); I36.1 Nonrheumatic tricuspid (valve) insufficiency; I34.0 Nonrheumatic mitral (valve) insufficiency
CPT/HCPCS: 93306

== ENCOUNTER 2021-03-19 09:17 | Outpatient (CLI) | payer OTHER, SELFPAY ==
--- NOTE | 2021-03-19 | ECHO_ITS ---
Patient Info Name: Shayy Carver Age: 25 years : 1995 Gender: Female Ht: 67 in Wt: 250 lbs BSA: 2.37 m2 HR: 90 bpm BP: 145 / 68 mmHg Heart Rhythm: Sinus Rhythm Exam Date: 03/19/2021 9:48 AM Exam Location: [facility] Patient Status: Outpatient Admit Date: 03/19/2021 Staff Ordering Physician: Hipolito, Simón Beltre MD Manager City: Arely Rodriguez RDCS Attending Provider: Kirstie, Simón Beltre MD Referring Physician: Hipolito FERNÁNDEZ; Exam Type: CA echo limited w bubble study Study Info Indications - spenic vein thrombosis Limited two-dimensional transthoracic echocardiogram is performed with agitated saline. Contrast/Agitated Saline Contrast/Ag. Saline: Agitated Saline Amount: 20.00 ml Administered By: Emmett Alatorre, RN New IV Access: Outer Forearm and Left Site Condition: IV removed Summary 1. Limited study with limited views. 2. Left ventricular chamber dimension is normal. 3. Left ventricular systolic function is normal, estimated at 55-60%. 4. Technically difficult study, however, no visualized evidence for intracardiac shunt at atrial level with injection of agitated saline with and without Valsalva. Left Ventricle Left ventricular chamber dimension is normal. Left ventricular systolic function is normal, estimated at 55-60%. Limited study with limited views. Atrial Septum Technically difficult study, however, no visualized evidence for intracardiac shunt at atrial level with injection of agitated saline with and without Valsalva. Report Signatures
== END 2021-03-19 09:18 | disposition home or self-care (01) ==
PROVIDERS: PCP Registered Nurse; Visit Provider Internal Medicine
DX: I74.8 Embolism and thrombosis of other arteries (principal)
CPT/HCPCS: 93308; 96375

== ENCOUNTER → 2021-03-20 03:43 | Outpatient (CLI) | payer OTHER, SELFPAY ==
[2021-03-20 19:18] LABS: SARS-CoV-2 RNA PCR Negative
== END ==
PROVIDERS: PCP Registered Nurse; Visit Provider Registered Nurse
DX: Z20.822 Contact with and (suspected) exposure to COVID-19 (principal)
CPT/HCPCS: C9803; U0003; U0005

== ENCOUNTER 2021-06-20 14:22 | Emergency (ER) | payer OTHER, SELFPAY ==
--- NOTE | ~2021-06-20 | XR_ITS ---
EXAMINATION: XR chest 2V EXAM DATE: 06/20/2021 15:21 INDICATION: Left-sided chest pain when taking breath. TECHNIQUE: Frontal and lateral projections of the chest obtained and reviewed. Comparison is made to prior examination from 04/10/2020. FINDINGS: The lungs are clear. There are no pleural effusions. The cardiomediastinal silhouette is within normal limits. There is no pneumothorax suspected. The bones and soft tissues are unremarkab le. IMPRESSION: No acute cardiopulmonary findings. Reviewed, dictated and finalized at location B. HROOM FOOD SERVICE SUPERVISOR
--- NOTE | ~2021-06-20 | CT_ITS ---
EXAMINATION: CTA chest PE protocol DATE: 06/20/2021 20:41 INDICATION: Chest pain and shortness of breath. TECHNIQUE: Computed tomography angiography (CTA) of the chest was performed with 100 mL Omnipaque-350 intravenous contrast timed to evaluate the pulmonary arteries. Coronal maximum intensity projection 3D-reconstructions were created by the technologist. Automated exposure control and iterative reconst ruction technique were employed. The dose-length product was 1006.16 mGy-cm. COMPARISON: Chest CT 11/03/2020 FINDINGS: There is no pneumonia or pleural effusion. The heart size is normal. No pericardial effusio n. There is no pulmonary embolus. There is cortical thinning of the kidneys. There is mild thoracic s pondylosis. IMPRESSION: 1. No pulmonary embolus. Reviewed, dictated and finalized at location A. X ADMIN IMPRESSION: 1. No pulmonary embolus.
[2021-06-20 14:26] VITALS: BP 140/85; PULSE 111; RESP 20; TEMP 36.5; O2SAT 100
--- NOTE | 2021-06-20 14:31 | ECG_ITS ---
Measurements Intervals [place] Rate: 114 P: 36 NV: 165 QRS: 38 QRSD: 90 T: 2 QT: 316 QTc: 437 Interpretive Statements SINUS TACHYCARDIA NONSPECIFIC T-WAVE ABNORMALITY- ANTEROLAT/INF LEADS ABNORMAL ECG Electronically Signed On 06-20-2021 14:42:38 HEALTH INFORMATION TECH by Danny Harden D.O.
[2021-06-20 17:47] VITALS: BP 123/87; PULSE 100; RESP 20; TEMP 37; O2SAT 99
[2021-06-20 18:28] VITALS: BP 136/94; PULSE 103; RESP 18; TEMP 36.1; O2SAT 99
[2021-06-20 18:54] LABS: Basophils Absolute Auto 0.1 K/mm3 (0.0-0.1); Basophils Percent Auto 0.9 % (0.2-1.2); Eosinophils Absolute Auto 0.1 K/mm3 (0-0.3); Eosinophils Percent Auto 1.6 % (0-4.4); Hematocrit 39.5 % (37.0-47.0); Hemoglobin 12.8 g/dL (12.0-15.0); Immature Granulocyte Absolute 0.03 K/mm3 (0.00-0.031); Immature Granulocyte Percent A 0.4 % (0-0.5); Lymphocytes Absolute Auto 2.54 K/mm3 (0.9-3.2); Lymphocytes Percent Auto 36.7 % (18.3-44.2); Mean Corpuscular HGB Conc 32.4 g/dl (32-36); Mean Corpuscular Hemoglobin 30.5 pg (26-34); Mean Corpuscular Volume 94.3 fl (80-100); Mean Platelet Volume 10.1 fl (7.4-10.4); Monocytes Absolute Auto 0.5 K/mm3 (0.1-0.6); Monocytes Percent Auto 7.7 % (2.6-8.5); Neutrophils Absolute Auto 3.7 K/mm3 (1.3-6.7); Neutrophils Percent Auto 52.7 % (45.5-73.1); Platelet Count Result 380 k/mm3 (150-375); Red Blood Count 4.19 M/mm3 (4.2-5.4); Red Cell Distribution Width 12.8 % (11.5-14.5); White Blood Count 6.9 K/mm3 (4.5-10.0)
[2021-06-20 19:07] LABS: Alanine Aminotransferase 26 U/L (4-35); Albumin Level 4.1 g/dL (3.5-5.1); Alkaline Phosphatase 92 U/L (38-126); Anion Gap 9 mmol/L (8-16); Aspartate Amino Transferase 37 U/L (14-36); Bilirubin,Total 0.5 mg/dL (0.2-1.3); Blood Urea Nitrogen 10 mg/dL (7-17); Carbon Dioxide 23 mmol/L (22-30); Chloride 104 mmol/L (98-107); Estimated CRCL calculation 154 ml/min; Estimated Glomerular Filt Rate > 60; Glucose 165 mg/dL (65-110); Lipase 89 U/L (23-300); Potassium 4.2 mmol/L (3.4-5.0); Sodium 136 mmol/L (137-145)
[2021-06-20 19:08] LABS: INR 0.9; Prothrombin Time 11.9 Seconds (11.1-14.7)
[2021-06-20 19:09] LABS: Partial Thromboplastin Time 24.5 SECONDS (22.3-36.8)
--- NOTE | 2021-06-20 19:10 | ED.URI ---
HPI - URI/Sore Throat General Chief Complaint: Upper Respiratory Infection <Saranya Walden PA-C - Last Filed: 06/20/21 21:27> Stated Complaint: chest pain, back pain, cough, fever <Saranya Walden PA-C - Last Filed: 06/20/21 21:27> Time Seen by Provider: 06/20/21 18:27 <VOLODYMYR Friend Last Filed: 06/20/21 21:27> Source: patient <VOLODYMYR Friend Last Filed: 06/20/21 21:27> Mode of arrival: ambulatory <VOLODYMYR Friend Last Filed: 06/20/21 21:27> Limitations: no limitations <VOLODYMYR Friend Last Filed: 06/20/21 21:27> History of Present Illness HPI Narrative: This is a 26 year old female that presents to the ER for chest pain and shortness of breath ongoing over the last week. Reports a sharp chest pain worse with breathing. Also reports headache, congestion, and sore throat. She is not COVID vaccinated. Patient was recently diagnosed with a PE. Does report she has been taking her blood thinners as prescribed. Denies fever or lower extremity edema. <Saranya Walden PA-C - Last Filed: 06/20/21 21:27> Related Data Home Medications: Home Medications Medication Instructions Recorded Confirmed Basaglar KwikPen U-100 Insulin 36 unit SUBCUT HS 11/02/20 11/02/20 Linzess 145 mcg PO DAILY 11/02/20 11/02/20 atorvastatin 80 mg PO HS 11/02/20 11/02/20 cholecalciferol (vitamin D3) 1,250 mcg PO WEEKLY 11/02/20 11/02/20 insulin aspart U-100 [Novolog 20 unit SUBCUT TID 11/02/20 11/02/20 Flexpen U-100 Insulin] tizanidine 4 mg PO DAILY PRN 11/02/20 11/02/20 <VOLODYMYR Friend Last Filed: 06/20/21 21:27> Allergies/Adverse Reactions: Allergies Allergy/AdvReac Type Severity Reaction Status Date / Time Sulfa (Sulfonamide Allergy Mild RASH Verified 06/20/21 18:33 Antibiotics) sulfamethoxazole Allergy Unknown Unknown Verified 06/20/21 18:33 trimethoprim Allergy Unknown Unknown Verified 06/20/21 18:33 <Saranya Walden PA-C - Last Filed: 06/20/21 21:27> Review of Systems Review of Systems: CONSTITUTIONAL: Denies fever ENT: Reports congestion, sore throat CARDIOVASCULAR: Reports chest pain. Denies edema. RESPIRATORY: Reports cough and dyspnea. NEUROLOGIC: Reports headache. Denies numbness, or weakness. <Saranya Walden PA-C - Last Filed: 06/20/21 21:27> All systems reviewed & are unremarkable except as noted in HPI and below <Saranya Walden PA-C - Last Filed: 06/20/21 21:27> PMFSH Past Medical History Medical History: Medical History (Updated 06/21/21 @ 00:01 by rFankie Vincent) History of hyperlipidemia Type 1 diabetes <Saranya Walden PA-C - Last Filed: 06/20/21 21:27> Family History Family History: Family History Mother Diabetes mellitus Father Diabetes mellitus Mother No problems noted. Sibling Diabetes mellitus Other Prostate carcinoma <Saranya Walden PA-C - Last Filed: 06/20/21 21:27> Social History Social History: Social History (Updated 11/02/20 @ 15:58 by Lo Salas PA-C) Social History: Patient does not smoke cigarettes or marijuana, drugs and does not drink alcohol. She is unemployed. She would like to be a full code and if she is unable to make decisions for herself she elects her significant other, Jenni, to make decisions for her. Smoking status: Never smoker Alcohol intake: never Alcohol use details: Social Substance use: never Gender identity (if verbalized by the patient): Female Spiritual care concerns: No <Saranya Walden PA-C - Last Filed: 06/20/21 21:27> Exam Narrative: GENERAL: Well-appearing, well-nourished, and in no acute distress. HEAD: Normocephalic, atraumatic. EYES: EOMI. ENT: Nares clear, no rhinorrhea or epistaxis. Mucous membranes moist. Oropharynx without tonsillar hypertrophy exudate or other lesions. Bilateral TMs pearly watson non-bulging NECK: Supple. N
[2021-06-20 19:12] LABS: D Dimer 0.34 ug/mL (<0.48)
[2021-06-20 19:19] LABS: Troponin I < 0.012 ng/mL (0.000-0.034)
[2021-06-20 19:30] VITALS: BP 141/98; PULSE 97; RESP 14; O2SAT 98
[2021-06-20] MEDS: SODIUM CHLORIDE 0.9% IV 1,000 ML 999 ML IV CONT (19:31)
--- NOTE | 2021-06-20 20:32 | PC.NURSE ---
Pt to CT scan via stretcher at this time.
[2021-06-20 20:48] VITALS: BP 142/101; PULSE 86; RESP 20; O2SAT 100
[2021-06-20 21:54] VITALS: BP 138/92; PULSE 91; RESP 22; TEMP 36.8; O2SAT 98
[2021-06-21 18:54] LABS: SARS-CoV-2 RNA PCR Negative
== END 2021-06-20 21:56 | disposition home or self-care (01) ==
PROVIDERS: Emergency Medicine; Physician Assistant; Emergency Provider General Practice; PCP Registered Nurse
DX: B34.9 Viral infection, unspecified (principal); E10.9 Type 1 diabetes mellitus without complications; Z20.822 Contact with and (suspected) exposure to COVID-19; Z86.711 Personal history of pulmonary embolism; Z79.899 Other long term (current) drug therapy; Z79.4 Long term (current) use of insulin; Z79.01 Long term (current) use of anticoagulants
CPT/HCPCS: 36415; 71046; 71275; 80053; 83690; 84484; 85025; 85380; 85610; 85730; 87804; 93005; 96361; 96365; 99284; C9803; J0131; J7030; Q9967; U0003; U0005

== ENCOUNTER 2021-09-10 14:53 | Emergency (ER) | payer OTHER, SELFPAY ==
--- NOTE | ~2021-09-10 | CT_ITS ---
EXAMINATION: CTA chest PE protocol DATE: 09/10/2021 16:28 INDICATION: Chest pain and shortness of breath TECHNIQUE: Computed tomography (CT) pulmonary angiogram of the chest was performed with 100 mL Omnipa que-350 intravenous contrast. Additional 3D reconstructions utilizing coronal maximum intensity proje ction (MIP) were performed. Automated exposure control and iterative reconstruction technique were em ployed. The dose-length product was 920.75 mGy-cm. COMPARISON: 07/17/2021 FINDINGS: Excellent contrast opacification of the pulmonary arteries. There is mild streak artifact from dense contrast in the superior vena cava and right atrium. Mild scattered respiratory motion artifact which does not significantly limit evaluation. No pulmonary embolism. No pneumonia, pulmonary edema or oth er pulmonary infiltrates. No pleural effusion or pneumothorax. Heart size is normal. No pericardial e ffusion. Thoracic aorta is normal in caliber with no dissection. Bovine aortic arch with common origi n of the innominate and left carotid arteries, a normal anatomic variant. Mild lower thoracic levocur vature. IMPRESSION: 1. No pulmonary embolism or other acute cardiopulmonary disease. Reviewed, dictated and finalized at location A. ICIAN OFFICE REP
--- NOTE | 2021-09-10 14:55 | ECG_ITS ---
Measurements Intervals [place] Rate: 89 P: 41 OR: 170 QRS: 42 QRSD: 84 T: 17 QT: 343 QTc: 418 Interpretive Statements SINUS RHYTHM NORMAL ECG Electronically Signed On 09-10-2021 15:49:09 LICENSING SPECIALIST by Danny Harden D.O.
[2021-09-10 14:59] VITALS: BP 161/104; PULSE 90; RESP 18; TEMP 36.8; O2SAT 100
[2021-09-10 15:00] VITALS: BP 130/92; PULSE 78; RESP 16; O2SAT 100
[2021-09-10 15:02] VITALS: PULSE 94
[2021-09-10 15:03] VITALS: PULSE 94; RESP 22; O2SAT 100
--- NOTE | 2021-09-10 15:03 | ED.CHESTPAIN ---
HPI - Chest Pain General Chief Complaint: Chest Pain Stated Complaint: chest pain / SOB Time Seen by Provider: 09/10/21 14:55 History of Present Illness HPI narrative: 26-year-old female presents the emergency room with complaints of reproducible chest pain, worse with inspiration and movement. Patient states symptoms have been present for 1 week. Has a history of PE, 10 months ago. Patient is currently on Eliquis. Patient admits to recent Covid infection. Denies palpitations, dizziness, lightheadedness, or nausea. Related Data Home Medications Medication Instructions Recorded Confirmed Basaglar KwikPen U-100 Insulin 36 unit SUBCUT HS 11/02/20 11/02/20 Linzess 145 mcg PO DAILY 11/02/20 11/02/20 atorvastatin 80 mg PO HS 11/02/20 11/02/20 cholecalciferol (vitamin D3) 1,250 mcg PO WEEKLY 11/02/20 11/02/20 insulin aspart U-100 [Novolog 20 unit SUBCUT TID 11/02/20 11/02/20 Flexpen U-100 Insulin] tizanidine 4 mg PO DAILY PRN 11/02/20 11/02/20 Allergies Allergy/AdvReac Type Severity Reaction Status Date / Time Sulfa (Sulfonamide Allergy Mild RASH Verified 09/10/21 15:02 Antibiotics) sulfamethoxazole Allergy Unknown Unknown Verified 09/10/21 15:02 trimethoprim Allergy Unknown Unknown Verified 09/10/21 15:02 Review of Systems Review of Systems: CONSTITUTIONAL: Denies fever, chills, or sweats. EYES: Denies visual changes, redness, or discharge. ENT: Denies rhinorrhea, congestion, sore throat, or otalgia. CARDIOVASCULAR: Reports chest pain; denies palpitations. RESPIRATORY: Reports SOB. GASTROINTESTINAL: Denies abdominal pain, nausea, vomiting, or diarrhea. GENITOURINARY: Denies dysuria or hematuria. SKIN: Denies rash or itching. MUSCULOSKELETAL: Denies back pain, joint pain, or myalgia. NEUROLOGIC: Denies headache, numbness, dizziness, or weakness. PSYCHIATRIC: Denies anxiety or depression. [facility] Past Medical History Medical History History of hyperlipidemia Type 1 diabetes Family History Family History Mother Diabetes mellitus Father Diabetes mellitus Mother No problems noted. Sibling Diabetes mellitus Other Prostate carcinoma Social History Social History Social History: Patient does not smoke cigarettes or marijuana, drugs and does not drink alcohol. She is unemployed. She would like to be a full code and if she is unable to make decisions for herself she elects her significant other, Jenni, to make decisions for her. Smoking status: Never smoker Alcohol intake: never Alcohol use details: Social Substance use: never Gender identity (if verbalized by the patient): Female Spiritual care concerns: No Exam Narrative: GENERAL: Well-appearing, well-nourished, and in no acute distress. HEAD: Normocephalic, atraumatic. EYES: PERRLA and EOMI. ENT: Nares clear, no rhinorrhea or epistaxis. Mucous membranes moist. Oropharynx without tonsillar hypertrophy exudate or other lesions. Bilateral TMs pearly watson nonbulging NECK: Supple. No adenopathy or masses. No carotid bruits or JVD CHEST: Clear to auscultation. No respiratory distress. No wheezes rales or rhonchi HEART: Regular rate and rhythm. No murmur heard. Normal peripheral pulses. ABDOMEN: Soft, nontender, nondistended, normal active bowel sounds. EXTREMITIES: Normal range of motion. No edema. SKIN: Warm, dry, no rash. NEURO: No focal deficits. Alert and oriented x3. PSYCH: Normal mood and affect. Course Vital Signs Vital signs: Vital Signs Temperature 36.8 C 09/10/21 14:59 Pulse Rate 90 09/10/21 14:59 Respiratory Rate 18 09/10/21 14:59 Blood Pressure 161/104 H 09/10/21 14:59 Pulse Oximetry 100 09/10/21 14:59 Temperature 36.8 C 09/10/21 14:59 Pulse Rate 94 09/10/21 15:02 Respiratory Rate 18 09/10/21 14:59 Blood
[2021-09-10 15:12] LABS: Basophils Percent Auto 0.4 % (0.2-1.2); Eosinophils Absolute Auto 0.1 K/mm3 (0-0.3); Eosinophils Percent Auto 0.8 % (0-4.4); Hematocrit 36.7 % (37.0-47.0); Hemoglobin 11.7 g/dL (12.0-15.0); Immature Granulocyte Absolute 0.03 K/mm3 (0.00-0.031); Immature Granulocyte Percent A 0.3 % (0-0.5); Lymphocytes Absolute Auto 3.31 K/mm3 (0.9-3.2); Lymphocytes Percent Auto 36.8 % (18.3-44.2); Mean Corpuscular HGB Conc 31.9 g/dl (32-36); Mean Corpuscular Hemoglobin 30.9 pg (26-34); Mean Corpuscular Volume 96.8 fl (80-100); Mean Platelet Volume 9.8 fl (7.4-10.4); Monocytes Absolute Auto 0.5 K/mm3 (0.1-0.6); Monocytes Percent Auto 5.7 % (2.6-8.5); Platelet Count Result 420 k/mm3 (150-375); Red Blood Count 3.79 M/mm3 (4.2-5.4); Red Cell Distribution Width 13.2 % (11.5-14.5)
[2021-09-10 15:22] LABS: Prothrombin Time 12.9 Seconds (11.1-14.7)
[2021-09-10 15:23] LABS: Partial Thromboplastin Time 25.7 SECONDS (22.3-36.8)
[2021-09-10 15:26] LABS: Alanine Aminotransferase 19 U/L (4-35); Alkaline Phosphatase 94 U/L (38-126); Anion Gap 7 mmol/L (8-16); Aspartate Amino Transferase 26 U/L (14-36); Bilirubin,Total 0.4 mg/dL (0.2-1.3); Blood Urea Nitrogen 17 mg/dL (7-17); Carbon Dioxide 24 mmol/L (22-30); Chloride 104 mmol/L (98-107); Estimated CRCL calculation 136 ml/min; Estimated Glomerular Filt Rate > 60; Glucose 161 mg/dL (65-110); Lipase 143 U/L (23-300); Potassium 4.1 mmol/L (3.4-5.0); Sodium 135 mmol/L (137-145)
[2021-09-10 15:36] LABS: Troponin I < 0.012 ng/mL (0.000-0.034)
[2021-09-10 15:39] LABS: D Dimer 0.31 ug/mL (<0.48)
[2021-09-10 16:00] VITALS: BP 130/90; PULSE 80; RESP 16; O2SAT 100
[2021-09-10 17:00] VITALS: BP 151/99; PULSE 76; RESP 16; O2SAT 100
== END 2021-09-10 17:00 | disposition home or self-care (01) ==
PROVIDERS: Emergency Medicine; Emergency Provider Nurse Practitioner Family; PCP Registered Nurse
DX: R09.1 Pleurisy (principal); R05.9 Cough, unspecified; R07.81 Pleurodynia; Z86.16 Personal history of COVID-19; E10.9 Type 1 diabetes mellitus without complications; E78.5 Hyperlipidemia, unspecified; Z86.711 Personal history of pulmonary embolism; Z79.4 Long term (current) use of insulin; Z79.01 Long term (current) use of anticoagulants
CPT/HCPCS: 36415; 71275; 80053; 81025; 83690; 84484; 85025; 85380; 85610; 85730; 93005; 99284; Q9967

== ENCOUNTER 2022-06-07 20:02 | Emergency (ER) | payer MEDICARE, MEDICAID, SELFPAY ==
--- NOTE | ~2022-06-07 | CT_ITS ---
EXAMINATION: CTA chest PE protocol DATE: 06/07/2022 21:13 INDICATION: chest pain, xh of DVT/PE TECHNIQUE: Computed tomography angiography (CTA) of the chest was performed with 200 mL Omnipaque-350 intravenous contrast timed to evaluate the pulmonary arteries (late phase of the initial scan requir ed repeat injection). Coronal maximum intensity projection 3D-reconstructions were created by the padilla hnologist. The dose-length product (DLP) was 1829.43 mGy-cm. Automated exposure control and iterative reconstruction technique were employed. COMPARISON: 09/10/2021. FINDINGS: Lung parenchyma and airways: Clear. Pleura: Unremarkable. Thoracic inlet, axillae and chest wall: Unremarkable. Thoracic aorta: Bovine arch, a normal variant. Mediastinum: Normal. Heart and pericardium: Normal. Coronary artery calcifications: Absent. Upper abdomen: Marked hepatomegaly. Diffuse low-density of the hepatic parenchyma in this arterial ph ase exam. Bones: No acute osseous finding. Pulmonary arteries: Study quality: Degraded by quantum mottle and late contrast phase (improved, but still present on the second injection) such that subsegmental and non-occlusive segmental emboli coul d be missed. No pulmonary emboli detected. IMPRESSION: Limited examination as detailed above, within those constraints no definite CT evidence of central or occlusive segmental acute pulmonary embolus. Marked hepatomegaly and likely steatosis. Reviewed, dictated and finalized at location K. NG INSPECTOR IMPRESSION: Limited examination as detailed above, within those constraints no definite CT evidence of central or occlusive segmental acute pulmonary embolus. Marked hepa tomegaly and likely steatosis.
--- NOTE | 2022-06-07 20:03 | ECG_ITS ---
Measurements Intervals [place] Rate: 99 P: 26 MS: 177 QRS: 32 QRSD: 94 T: -14 QT: 329 QTc: 422 Interpretive Statements SINUS RHYTHM BORDERLINE ST-T WAVE ABNORMALITY- ANTEROLAT/INF LEADS BASELINE ARTIFACT- I, II, III, AVR, AVL, AVF, V1-V6 BORDERLINE ECG COMPARED TO ECG 09/10/2021 15:00:43 ST-T WAVE ABNORMALITY NOW PRESENT Electronically Signed On 06-08-2022 6:40:59 GIANT TIRE REPAIRER by Danny Harden D.O.
[2022-06-07 20:08] VITALS: BP 163/103; PULSE 105; RESP 15; TEMP 36.7; O2SAT 100
[2022-06-07 20:17] VITALS: PULSE 100
[2022-06-07 20:22] VITALS: O2SAT 97
[2022-06-07 20:22] LABS: Basophils Percent Auto 0.6 % (0.2-1.2); Eosinophils Absolute Auto 0.1 K/mm3 (0-0.3); Eosinophils Percent Auto 1.7 % (0-4.4); Hematocrit 37.6 % (37.0-47.0); Hemoglobin 12.1 g/dL (12.0-15.0); Immature Granulocyte Absolute 0.01 K/mm3 (0.00-0.031); Immature Granulocyte Percent A 0.2 % (0-0.5); Lymphocytes Absolute Auto 2.61 K/mm3 (0.9-3.2); Lymphocytes Percent Auto 41.4 % (18.3-44.2); Mean Corpuscular HGB Conc 32.2 g/dl (32-36); Mean Corpuscular Hemoglobin 30.6 pg (26-34); Mean Corpuscular Volume 95.2 fl (80-100); Mean Platelet Volume 9.9 fl (7.4-10.4); Monocytes Absolute Auto 0.4 K/mm3 (0.1-0.6); Monocytes Percent Auto 5.7 % (2.6-8.5); Neutrophils Absolute Auto 3.2 K/mm3 (1.3-6.7); Neutrophils Percent Auto 50.4 % (45.5-73.1); Platelet Count Result 346 k/mm3 (150-375); Red Blood Count 3.95 M/mm3 (4.2-5.4); Red Cell Distribution Width 12.9 % (11.5-14.5); White Blood Count 6.3 K/mm3 (4.5-10.0)
[2022-06-07] MEDS: SODIUM CHLORIDE 0.9% IV 1,000 ML 999 ML IV CONT (20:26)
[2022-06-07 20:33] LABS: Alanine Aminotransferase 24 U/L (6-35); Albumin Level 3.6 g/dL (3.5-5.1); Alkaline Phosphatase 106 U/L (38-126); Anion Gap 7 mmol/L (8-16); Aspartate Amino Transferase 31 U/L (14-36); Bilirubin,Total 0.3 mg/dL (0.2-1.3); Blood Urea Nitrogen 13 mg/dL (7-17); Calcium 8.4 mg/dL (8.4-10.2); Carbon Dioxide 26 mmol/L (22-30); Chloride 103 mmol/L (98-107); Estimated CRCL calculation 136 ml/min; Estimated Glomerular Filt Rate > 60; Glucose 241 mg/dL (65-110); Potassium 3.9 mmol/L (3.4-5.0); Sodium 136 mmol/L (137-145)
--- NOTE | 2022-06-07 20:36 | ED.SOB ---
HPI - SOB/Dyspnea General Chief Complaint: Shortness of Breath/Dyspnea Stated Complaint: chest pain, body aches Time Seen by Provider: 06/07/22 20:03 History of Present Illness HPI Narrative: 27-year-old morbidly obese female history of type 1 diabetes, GERD, hypertension, hyperlipidemia, history of splenic infarct presents to the emergency room for evaluation of chest pain and shortness of breath. Patient states has been experiencing midsternal intermittent chest pain for 3 days and radiates through to her back. States the pain became constant today and was associated with some shortness of breath. Patient also reports not being compliant with her blood pressure medication. Reports chest pain is worse with ambulation. Unable to reproduce it with inspiration. Denies chest wall tenderness. Related Data Home Medications Medication Instructions Recorded Confirmed atorvastatin 80 mg tablet 80 mg PO HS 11/02/20 11/02/20 cholecalciferol (vitamin D3) 1,250 1,250 mcg PO WEEKLY 11/02/20 11/02/20 mcg (50,000 unit) capsule insulin aspart U-100 100 unit/mL 20 unit subcut TID 11/02/20 11/02/20 (3 mL) subcutaneous pen (Novolog Flexpen U-100 Insulin aspart) insulin glargine 100 unit/mL (3 36 unit subcut HS 11/02/20 11/02/20 mL) subcutaneous pen (Basaglar KwikPen U-100 Insulin) linaclotide 145 mcg capsule 145 mcg PO DAILY 11/02/20 11/02/20 (Linzess) tizanidine 4 mg tablet 4 mg PO DAILY PRN Pain 11/02/20 11/02/20 Allergies Allergy/AdvReac Type Severity Reaction Status Date / Time Sulfa (Sulfonamide Allergy Mild RASH Verified 09/10/21 15:02 Antibiotics) sulfamethoxazole Allergy Unknown Unknown Verified 09/10/21 15:02 trimethoprim Allergy Unknown Unknown Verified 09/10/21 15:02 Review of Systems Review of Systems: CONSTITUTIONAL: Denies fever, chills, or sweats. EYES: Denies visual changes, redness, or discharge. ENT: Denies rhinorrhea, congestion, sore throat, or otalgia. CARDIOVASCULAR: Reports chest pain, denies palpitations or edema RESPIRATORY: Denies cough or dyspnea. GASTROINTESTINAL: Denies abdominal pain, nausea, vomiting, or diarrhea. GENITOURINARY: Denies dysuria or hematuria. SKIN: Denies rash or itching. MUSCULOSKELETAL: Denies back pain, joint pain, or myalgia. NEUROLOGIC: Denies headache, numbness, dizziness, or weakness. PSYCHIATRIC: Denies anxiety or depression. [facility] Past Medical History Medical History History of hyperlipidemia Type 1 diabetes Family History Family History Mother Diabetes mellitus Father Diabetes mellitus Mother No problems noted. Sibling Diabetes mellitus Other Prostate carcinoma Social History Social History Social History: Patient does not smoke cigarettes or marijuana, drugs and does not drink alcohol. She is unemployed. She would like to be a full code and if she is unable to make decisions for herself she elects her significant other, Jenni, to make decisions for her. Smoking status: Never smoker Alcohol intake: never Alcohol use details: Social Substance use: never Gender identity (if verbalized by the patient): Female Spiritual care concerns: No Exam Narrative: GENERAL: Well-appearing, well-nourished, no physical limitations, and in no acute distress. HEAD: Normocephalic, atraumatic. EYES: Conjunctivae normal, PERRLA and EOMI. CHEST: Clear to auscultation. No respiratory distress. No wheezes rales or rhonchi. No tenderness. HEART: Regular rate and rhythm. No murmur heard. Normal peripheral pulses. ABDOMEN: Soft, nontender, morbid obesity, nondistended, normal active bowel sounds. : Normal external male/female exam. BACK: No CVA tenderness; No cervical/thoracic/lumbar tenderness, step-offs, bony abnormality; FROM EXTREMITIES: Normal range of motion. No
[2022-06-07 21:31] LABS: Influenza A QL RT-PCR Negative (Negative); Influenza B QL RT-PCR Negative (Negative); RSV RNA, RT-PCR Negative (Negative); SARS-CoV-2 RNA PCR Negative
[2022-06-07 21:34] VITALS: BP 158/99; PULSE 88; RESP 17; O2SAT 100
[2022-06-07 21:36] LABS: Troponin I < 0.012 ng/mL (0.000-0.034)
[2022-06-07] MEDS: KETOROLAC 30 MG/ML VIAL (*BKC) IV PUSH (21:43)
[2022-06-07 22:17] VITALS: BP 145/94; PULSE 88; RESP 14; O2SAT 99
== END 2022-06-07 22:34 | disposition home or self-care (01) ==
PROVIDERS: Emergency Medicine; Emergency Provider Nurse Practitioner Family; PCP Registered Nurse
DX: R07.89 Other chest pain (principal); Z20.822 Contact with and (suspected) exposure to COVID-19; E78.5 Hyperlipidemia, unspecified; E10.9 Type 1 diabetes mellitus without complications; K21.9 Gastro-esophageal reflux disease without esophagitis; Z79.4 Long term (current) use of insulin; R94.31 Abnormal electrocardiogram [ECG] [EKG]
CPT/HCPCS: 36415; 71275; 80053; 81025; 84484; 85025; 87637; 93005; 96361; 96374; 99284; J1885; J7030; Q9967

== ENCOUNTER 2022-11-08 18:14 | Emergency (ER) | payer MEDICARE, MEDICAID, SELFPAY ==
[2022-11-08] VITALS (7 sets, daily range): BP systolic 135–186; BP diastolic 93–114; PULSE 79–93; RESP 16–20; TEMP 36.6; O2SAT 99–100
--- NOTE | ~2022-11-08 | XR_ITS ---
EXAMINATION: XR chest 2V Exam Date/Time: 11/08/2022 18:20 CDT HISTORY: shortness of breath BACK PAIN RADIATES FRONTALLY X 1 WK HTN Comparison: 06/20/2021. RESULT: Lines, tubes, and devices: None. Lungs and pleura: Clear. Cardiomediastinal silhouette: Stable. Other: No acute osseous or upper abdominal finding. IMPRESSION: No acute cardiopulmonary process. Reviewed, dictated and finalized at location K.
--- NOTE | 2022-11-08 18:20 | ECG_ITS ---
Measurements Intervals [place] Rate: 91 P: 34 [place]: 169 QRS: 36 QRSD: 89 T: -3 QT: 351 QTc: 432 Interpretive Statements SINUS RHYTHM NORMAL ELECTROCARDIOGRAM COMPARED TO ECG 06/07/2022 20:15:25 NO SIGNIFICANT CHANGES/CURRENT TRACING IS OF BETTER QUALITY Electronically Signed On 11-09-2022 7:06:58 CDT by Trevon Soler M.D.
[2022-11-08 18:56] LABS: Basophils Percent Auto 0.6 % (0.2-1.2); Eosinophils Absolute Auto 0.1 K/mm3 (0-0.3); Eosinophils Percent Auto 1.5 % (0-4.4); Hematocrit 37.5 % (37.0-47.0); Hemoglobin 12.1 g/dL (12.0-15.0); Immature Granulocyte Absolute 0.02 K/mm3 (0.00-0.031); Immature Granulocyte Percent A 0.3 % (0-0.5); Lymphocytes Absolute Auto 2.87 K/mm3 (0.9-3.2); Lymphocytes Percent Auto 39.7 % (18.3-44.2); Mean Corpuscular HGB Conc 32.3 g/dl (32-36); Mean Corpuscular Hemoglobin 30.6 pg (26-34); Mean Corpuscular Volume 94.9 fl (80-100); Mean Platelet Volume 9.7 fl (7.4-10.4); Monocytes Absolute Auto 0.4 K/mm3 (0.1-0.6); Monocytes Percent Auto 5.4 % (2.6-8.5); Neutrophils Absolute Auto 3.8 K/mm3 (1.3-6.7); Neutrophils Percent Auto 52.5 % (45.5-73.1); Platelet Count Result 341 k/mm3 (150-375); Red Blood Count 3.95 M/mm3 (4.2-5.4); Red Cell Distribution Width 12.6 % (11.5-14.5); White Blood Count 7.2 K/mm3 (4.5-10.0)
[2022-11-08 19:06] LABS: Alanine Aminotransferase 36 U/L (6-35); Albumin Level 3.6 g/dL (3.5-5.1); Alkaline Phosphatase 115 U/L (38-126); Anion Gap 9 mmol/L (8-16); Aspartate Amino Transferase 29 U/L (14-36); Bilirubin,Total 0.4 mg/dL (0.2-1.3); Blood Urea Nitrogen 15 mg/dL (7-17); Calcium 8.2 mg/dL (8.4-10.2); Carbon Dioxide 23 mmol/L (22-30); Chloride 102 mmol/L (98-107); Estimated CRCL calculation 165 ml/min; Estimated Glomerular Filt Rate > 60; Glucose 335 mg/dL (65-110); Potassium 3.8 mmol/L (3.4-5.0); Sodium 134 mmol/L (137-145)
--- NOTE | 2022-11-08 19:19 | PC.NURSE ---
Assumed care of pt at this time, pt alert and upright on stretcher
--- NOTE | 2022-11-08 19:51 | ED.GENADULT ---
HPI - General Adult General Chief complaint: Unspecified <John Rasmussen PA-C - Last Filed: 11/09/22 01:52> Stated complaint: cold symptoms <John Rasmussen PA-C - Last Filed: 11/09/22 01:52> Time Seen by Provider: 11/08/22 18:59 <John Rasmussen PA-C - Last Filed: 11/09/22 01:52> Source: patient <VOLODYMYR Prieto Last Filed: 11/09/22 01:52> Mode of arrival: ambulatory <VOLODYMYR Prieto Last Filed: 11/09/22 01:52> Limitations: no limitations <John Rasmussen PA-C - Last Filed: 11/09/22 01:52> History of Present Illness HPI narrative: This is a 27-year-old female with PMH of DM type I presents to the ED with chief complaint of chest congestion and shortness of breath onset x1 week. Patient states this started with a sore throat, runny nose, congestion along with generalized abdominal pain and nausea. Patient states she was seen 4 days ago and told she has a viral process. She returns today because she still has shortness of breath and chest pain. Describes it as a mild centralized pain. Worse with breathing. Endorses cough but no hemoptysis. Denies leg swelling. Also endorses history of PE and splenic infarct but she is on Eliquis twice daily. Denies fevers, chills. Reports history of PE and splenic infarct last year, is still taking Eliquis twice daily. <John Rasmussen PA-C - Last Filed: 11/09/22 01:52> Related Data Home medications: Home Medications Medication Instructions Recorded Confirmed atorvastatin 80 mg tablet 80 mg PO HS 11/02/20 11/02/20 cholecalciferol (vitamin D3) 1,250 1,250 mcg PO WEEKLY 11/02/20 11/02/20 mcg (50,000 unit) capsule insulin aspart U-100 100 unit/mL 20 unit subcut TID 11/02/20 11/02/20 (3 mL) subcutaneous pen (Novolog FlexPen U-100 Insulin aspart) insulin glargine 100 unit/mL (3 36 unit subcut HS 11/02/20 11/02/20 mL) subcutaneous pen (Basaglar KwikPen U-100 Insulin) linaclotide 145 mcg capsule 145 mcg PO DAILY 11/02/20 11/02/20 (Linzess) tizanidine 4 mg tablet 4 mg PO DAILY PRN Pain 11/02/20 11/02/20 <John Rasmussen PA-C - Last Filed: 11/09/22 01:52> Allergies/adverse reactions: Allergies Allergy/AdvReac Type Severity Reaction Status Date / Time Sulfa (Sulfonamide Allergy Mild RASH Verified 09/10/21 15:02 Antibiotics) sulfamethoxazole Allergy Unknown Unknown Verified 09/10/21 15:02 trimethoprim Allergy Unknown Unknown Verified 09/10/21 15:02 <John Rasmussen PA-C - Last Filed: 11/09/22 01:52> Review of Systems Review of Systems: CONSTITUTIONAL: Denies fever, chills, or sweats. EYES: Denies visual changes, redness, or discharge. ENT: See HPI CARDIOVASCULAR: See HPI RESPIRATORY: See HPI GASTROINTESTINAL: See HPI GENITOURINARY: Denies dysuria or hematuria. SKIN: Denies rash or itching. MUSCULOSKELETAL: Denies back pain, joint pain, or myalgia. NEUROLOGIC: Denies headache, numbness, dizziness, or weakness. PSYCHIATRIC: Denies anxiety or depression. <John Rasmussen PA-C - Last Filed: 11/09/22 01:52> [facility] Past Medical History Medical History: Medical History History of hyperlipidemia Type 1 diabetes <John Rasmussen PA-C - Last Filed: 11/09/22 01:52> Family History Family History: Family History Mother Diabetes mellitus Father Diabetes mellitus Mother No problems noted. Sibling Diabetes mellitus Other Prostate carcinoma <John Rasmussen PA-C - Last Filed: 11/09/22 01:52> Social History Social History: Social History Social History: Patient does not smoke cigarettes or marijuana, drugs and does not drink alcohol. She is unemployed. She would like to be a full code and if she is unable to make decisions for herself she elects her significant other, Jenni, to make decisions for her. Smoking
[2022-11-08] MEDS: KETOROLAC 30 MG/ML VIAL (*BKC) IV PUSH (20:03)
[2022-11-08] MEDS: SODIUM CHLORIDE 0.9% IV 1,000 ML 999 ML IV CONT (20:57)
--- NOTE | 2022-11-08 21:23 | PC.NURSE ---
Pt requesting to leave, stating This is taking too long, Deneen been here for 3 hours . LUNA Rasmussen notified
--- NOTE | 2022-11-08 21:40 | PC.NURSE ---
Pt refused rest of IV infusion
== END 2022-11-08 21:46 | disposition home or self-care (01) ==
PROVIDERS: Emergency Medicine; Emergency Provider Physician Assistant; PCP Registered Nurse
DX: B34.9 Viral infection, unspecified (principal); E10.9 Type 1 diabetes mellitus without complications; E78.5 Hyperlipidemia, unspecified; Z79.4 Long term (current) use of insulin
CPT/HCPCS: 36415; 71046; 80053; 85025; 93005; 96365; 96375; 99284; J0131; J1885; J7030

== ENCOUNTER 2024-06-07 19:21 | Emergency (ER) | payer MEDICARE, MEDICAID, SELFPAY ==
--- NOTE | ~2024-06-07 | XR_ITS ---
EXAMINATION: XR chest 2V DATE: 06/07/2024 19:52 INDICATION: Shortness of breath. TECHNIQUE: Frontal and lateral views of the chest were obtained. COMPARISON: Chest 2 views 11/08/2022 FINDINGS: There is no pneumonia, pleural effusion, or pneumothorax. The heart size is normal. IMPRESSION: 1. No acute cardiopulmonary disease. Reviewed, dictated and finalized at location A. GER OF CORPORATE COMMUNICATIONS
--- NOTE | 2024-06-07 19:23 | ECG_ITS ---
Test Date: 2024-06-07 19:42:28 Measurements Intervals [place] Rate: 87 P: 21 [place]: 153 QRS: 12 QRSD: 86 T: -1 QT: 346 QTc: 417 Interpretive Statements SINUS RHYTHM BORDERLINE T WAVE ABNORMALITY- ANTEROLAT/INF LEADS BASELINE ARTIFACT- I, II, AVR, AVL, V1 BORDERLINE ECG No previous ECG available for comparison Electronically Signed On 06-08-2024 07:37:22 SHINGLES ROOFER HELPER by Danny Harden D.O.
[2024-06-07 19:51] VITALS: BP 149/100; PULSE 88; RESP 16; TEMP 37.1; O2SAT 98
--- NOTE | 2024-06-07 20:46 | PC.NURSE ---
Patient refuses blood work
== END 2024-06-07 23:09 | disposition left against medical advice (07) ==
LOC: ANHED 22:44
PROVIDERS: Emergency Provider Emergency Medicine; PCP Registered Nurse
DX: R06.02 Shortness of breath (principal)
CPT/HCPCS: 71046; 93005; 99199

== ENCOUNTER 2024-06-08 16:30 | Emergency (ER) | payer MEDICARE, MEDICAID, SELFPAY ==
[2024-06-08] VITALS (8 sets, daily range): BP systolic 117–133; BP diastolic 84–85; PULSE 83–93; RESP 11–27; TEMP 36.8; O2SAT 98–100
--- NOTE | ~2024-06-08 | CT_ITS ---
EXAMINATION: CTA chest PE protocol DATE: 06/08/2024 21:42 INDICATION: Chest pain. TECHNIQUE: Computed tomography angiography (CTA) of the chest was performed with 100 mL Omnipaque-350 intravenous contrast timed to evaluate the pulmonary arteries. Coronal maximum intensity projection 3D-reconstructions were created by the technologist. Automated exposure control and iterative reconst ruction technique were employed. The dose-length product was 1096.80 mGy-cm. COMPARISON: Chest CT 06/07/2022 FINDINGS: The lung volumes are small. There is no pneumonia or pleural effusion. The heart size is no rmal. No pericardial effusion. There is no pulmonary embolus. There is mild thoracic spondylosis. IMPRESSION: 1. No pulmonary embolus. Reviewed, dictated and finalized at location A. DRAWER IMPRESSION: 1. No pulmonary embolus.
--- NOTE | ~2024-06-08 | XR_ITS ---
CHEST RADIOGRAPH, PA AND LATERAL CLINICAL HISTORY: CP, COUGH . COMPARISON: 06/07/2024 TECHNIQUE: PA and lateral views of the chest. FINDINGS The cardiomediastinal silhouette is unremarkable. The lungs are clear. Visualized osseous structures and soft tissues are unremarkable. IMPRESSION: No focal infiltrate or effusion. Reviewed, dictated and finalized at location A. NG AND MOLDING MACHINE OPERATOR
--- NOTE | 2024-06-08 16:33 | ECG_ITS ---
Test Date: 2024-06-08 17:01:03 Measurements Intervals [place] Rate: 100 P: 46 [place]: 171 QRS: 32 QRSD: 86 T: -16 QT: 329 QTc: 426 Interpretive Statements SINUS TACHYCARDIA NONSPECIFIC ST-T WAVE ABNORMALITY- ANTEROLAT/INF LEADS BASELINE ARTIFACT- I, II, III, AVR, AVL, AVF, V2 BORDERLINE ECG Compared to ECG 06/07/2024 19:42:28 HEART RATE HAS INCREASED Electronically Signed On 06-08-2024 19:15:10 PRINTED CIRCUIT BOARD PANELS PLATER by Danny Harden D.O.
[2024-06-08 17:15] LABS: Basophils Percent Auto 0.5 % (0.2-1.2); Eosinophils Absolute Auto 0.1 K/mm3 (0-0.3); Eosinophils Percent Auto 0.9 % (0-4.4); Hematocrit 37.8 % (37.0-47.0); Hemoglobin 12.4 g/dL (12.0-15.0); Immature Granulocyte Absolute 0.02 K/mm3 (0.00-0.031); Immature Granulocyte Percent A 0.2 % (0-0.5); Lymphocytes Absolute Auto 2.61 K/mm3 (0.9-3.2); Lymphocytes Percent Auto 32.1 % (18.3-44.2); Mean Corpuscular HGB Conc 32.8 g/dl (32-36); Mean Corpuscular Hemoglobin 30.7 pg (26-34); Mean Corpuscular Volume 93.6 fl (80-100); Mean Platelet Volume 9.9 fl (7.4-10.4); Monocytes Absolute Auto 0.4 K/mm3 (0.1-0.6); Monocytes Percent Auto 5.4 % (2.6-8.5); Neutrophils Percent Auto 60.9 % (45.5-73.1); Platelet Count Result 317 k/mm3 (150-375); Red Blood Count 4.04 M/mm3 (4.2-5.4); Red Cell Distribution Width 13.1 % (11.5-14.5); White Blood Count 8.1 K/mm3 (4.5-10.0)
[2024-06-08 17:30] LABS: Alanine Aminotransferase 27 U/L (6-35); Albumin Level 3.9 g/dL (3.5-5.1); Alkaline Phosphatase 94 U/L (38-126); Anion Gap 6 mmol/L (4-12); Aspartate Amino Transferase 30 U/L (14-36); Bilirubin,Total 0.6 mg/dL (0.2-1.3); Blood Urea Nitrogen 12 mg/dL (7-17); Calcium 9.3 mg/dL (8.4-10.2); Carbon Dioxide 24 mmol/L (22-30); Chloride 105 mmol/L (98-107); Estimated CRCL calculation 114 ml/min; Estimated Glomerular Filt Rate > 60; Glucose 187 mg/dL (65-110); Lipase 100 U/L (23-300); Potassium 4.1 mmol/L (3.4-5.0); Sodium 135 mmol/L (137-145)
[2024-06-08 17:38] LABS: INR 1.1; Partial Thromboplastin Time 26.8 Seconds (22.3-36.8); Prothrombin Time 14.2 Seconds (11.1-14.7)
[2024-06-08 17:42] LABS: Troponin I < 0.012 ng/mL (0.000-0.034)
[2024-06-08 19:43] LABS: Beta HCG Quantitative < 2.39 mIU/ML
[2024-06-08 21:51] LABS: Troponin I < 0.012 ng/mL (0.000-0.034)
--- NOTE | 2024-06-08 22:42 | ED_ITS ---
HPI - Chest Pain General Chief Complaint: Chest Pain Stated Complaint: chest pain Time Seen by Provider: 06/08/24 21:31 Source: patient Mode of arrival: ambulatory Limitations: no limitations History of Present Illness HPI narrative: Patient is a 29 y/o female who presents to the ED with c/o CP. Patient reports having intermittent midsternal chest pain over the last 2 days. States she has had a dry cough and has worsening pain with coughing. She reports having a dry throat, mild shortness of breath, lightheadedness. Denies pain or swelling in legs, fevers, sick contacts. Related Data Home Medications Medication Instructions Recorded Confirmed atorvastatin 80 mg tablet 80 mg PO HS 11/02/20 11/02/20 cholecalciferol (vitamin D3) 1,250 1,250 mcg PO WEEKLY 11/02/20 11/02/20 mcg (50,000 unit) capsule insulin aspart U-100 100 unit/mL 20 unit subcut TID 11/02/20 11/02/20 (3 mL) subcutaneous pen (Novolog FlexPen U-100 Insulin aspart) insulin glargine 100 unit/mL (3 36 unit subcut HS 11/02/20 11/02/20 mL) subcutaneous pen (Basaglar KwikPen U-100 Insulin) linaclotide 145 mcg capsule 145 mcg PO DAILY 11/02/20 11/02/20 (Linzess) tizanidine 4 mg tablet 4 mg PO DAILY PRN Pain 11/02/20 11/02/20 Allergies Allergy/AdvReac Type Severity Reaction Status Date / Time Sulfa (Sulfonamide Allergy Mild RASH Verified 09/10/21 15:02 Antibiotics) sulfamethoxazole Allergy Unknown Unknown Verified 09/10/21 15:02 trimethoprim Allergy Unknown Unknown Verified 09/10/21 15:02 Review of Systems Review of Systems: All systems reviewed & are unremarkable except as noted in HPI. All systems reviewed & are unremarkable except as noted in HPI and below PMFSH Past Medical History Medical History History of hyperlipidemia Type 1 diabetes Family History Family History Mother Diabetes mellitus Father Diabetes mellitus Mother No problems noted. Sibling Diabetes mellitus Other Prostate carcinoma Social History Social History Social History: Patient does not smoke cigarettes or marijuana, drugs and does not drink alcohol. She is unemployed. She would like to be a full code and if she is unable to make decisions for herself she elects her significant other, Jenni, to make decisions for her. Smoking status: Never smoker Alcohol intake: never Alcohol use details: Social Substance use: never Living arrangements: with family Gender identity (if verbalized by the patient): Female Spiritual care concerns: No Exam Narrative: GENERAL: Well appearing, morbidly obese with BMI of 55.9, non-toxic, in no acute distress. HEAD: Normocephalic, atraumatic. RESPIRATORY: Airway patent, respirations nonlabored. Clear to auscultation bilaterally, no rales, rhonchi, wheezing. CARDIOVASCULAR: Regular rate and rhythm without murmurs, rubs, or gallops. MUSCULOSKELETAL: Moves all extremities. No gross deformities. No peripheral edema. No calf tenderness. SKIN: Warm, dry, normal color. NEURO: A&O X3. Speech clear. Cranial nerves II-XII grossly intact. Steady gait. No ataxic movements. PSYCHIATRIC: Appropriate mood and affect. Normal interaction. Course Vital Signs Vital signs: Vital Signs Temperature 98.2 F 06/08/24 22:01 Pulse Rate 83 06/08/24 22:01 Respiratory Rate 14 06/08/24 22:01 Pulse Oximetry 100 06/08/24 22:01 Temperature 98.2 F 06/08/24 22:01 Pulse Rate 93 06/08/24 23:11 Respiratory Rate 19 06/08/24 23:11 Blood Pressure 117/84 06/08/24 23:11 Pulse Oximetry 99 06/08/24 23:11 Oxygen Delivery Room Air 06/08/24 22:50 MDM - Chest Pain MDM Narrative Medical decision making narrative: EKG without concerning ischemic changes. Troponin negative x2. Chest x-ray is clear. CTA of chest was ordered and obtained from triage and without evidence of PE or pneumonia. No other acute cardiopulmonary abnormality. HEART score = 2 based on RFs (obesity, HLD, DM). Basic laboratory studies are otherwise unremarkable. Patient was tested negative for COVID/influenza/strep prior to arrival. Discussed lab and imaging findings, overall reassuring workup with patient. Discussed likelihood of URI, costochondritis/pleurisy picture. Discussed management of such. Patient is in agreement with plan and feels comfortable going home. Given strict precautions. Discharged in stable condition. Medical Records Data Attestation: I reviewed the patient's medical records. Lab Data Attestation: I reviewed the patient's lab results. 06/08/24 16:50 06/08/24 16:50 Labs: Lab Results 06/08/24 06/08/24 Range/Units 16:50 21:22 WBC 8.1 (4.5-10.0) K/mm3 RBC 4.04 L (4.2-5.4) M/mm3 Hgb 12.4 (12.0-15.0) g/dL Hct 37.8 (37.0-47.0) % MCV 93.6 (80-100) fl MCH 30.7 (26-34) pg MCHC 32.8 (32-36) g/dl RDW 13.1 (11.5-14.5) % Plt Count 317 (150-375) k/mm3 MPV 9.9 (7.4-10.4) fl Immature Gran % (Auto) 0.2 (0-0.5) % Neut % (Auto) 60.9 (45.5-73.1) % Lymph % (Auto) 32.1 (18.3-44.2) % [place] % (Auto) 5.4 (2.6-8.5) % Eos % (Auto) 0.9 (0-4.4) % Baso % (Auto) 0.5 (0.2-1.2) % Lymph # (Auto) 2.61 (0.9-3.2) K/mm3 [place] # (Auto) 0.4 (0.1-0.6) K/mm3 Eos # (Auto) 0.1 (0-0.3) K/mm3 Baso # (Auto) 0.0 (0.0-0.1) K/mm3 Abs Immat Gran (auto) 0.02 (0.00-0.031) K/mm3 Absolute Neuts (auto) 5.0 (1.3-6.7) K/mm3 Absolute Nucleated RBC 0.000 (0.0-0.012) K/mm3 Nucleated RBC % 0.0 (0.0-0.2) % PT 14.2 (11.1-14.7) Seconds INR 1.1 APTT 26.8 (22.3-36.8) Seconds Sodium 135 L (137-145) mmol/L Potassium 4.1 (3.4-5.0) mmol/L Chloride 105 (98-107) mmol/L Carbon Dioxide 24 (22-30) mmol/L Anion Gap 6 (4-12) mmol/L BUN 12 (7-17) mg/dL Creatinine 1.00 (0.7-1.0) mg/dL Estim Creat Clear Calc 114 ml/min Estimated GFR > 60 (59 - ) Glucose 187 H (65-110) mg/dL Calcium 9.3 (8.4-10.2) mg/dL Total Bilirubin 0.6 (0.2-1.3) mg/dL AST 30 (14-36) U/L ALT 27 (6-35) U/L Alkaline Phosphatase 94 (38-126) U/L Troponin I < 0.012 < 0.012 (0.000-0.034) ng/mL Total Protein 8.0 (6.3-8.2) g/dL Albumin 3.9 (3.5-5.1) g/dL Lipase 100 (23-300) U/L Beta HCG, Quant < 2.39 mIU/ML Imaging Data Attestation: I personally reviewed and interpreted this imaging study as follows: Radiologist's impression: ITS Impressions Chest X-Ray 06/08/24 17:09 IMPRESSION: No focal infiltrate or effusion. Chest CTA 06/08/24 21:43 IMPRESSION: 1. No pulmonary embolus. ECG Data EKG #1: Attestation: I personally reviewed and interpreted this ECG as follows: ECG completion date: 06/08/24 ECG completion time: 17:01 EKG Interpretation: tachycardia (100), sinus rhythm and non-specific ST changes Discharge Plan Discharge Clinical Impression: Atypical chest pain, Upper respiratory infection Patient Disposition: Home, Self-Care Condition: Stable Instructions: Antibiotic Form, Chest Pain (ED), Pleurisy (ED), Costochondritis (ED), Upper Respiratory Infection (ED) Additional Instructions: Your workup here was reassuring. There is no evidence of pneumonia or blood clots. You likely have a upper respiratory infection. Recommend Tylenol/ibuprofen as needed for cough, lidocaine patches to area of pain as needed. Recommend [id number] cough and cold medicines for symptom relief, Delsym, Mucinex, DayQuil, NyQuil, Sudafed, Robitussin, TheraFlu. Follow with primary care doctor for further evaluation if needed. Return to the ED if you experience chest pain, difficulty breathing, unable to keep down food or drink, severe pain, or any other symptoms of concern. Prescriptions: New dextromethorphan polistirex [Delsym 12 hour] 30 mg/5 mL suspension,extended rel 12 hr 10 ml PO Q12H PRN (Reason: cough) Qty: 89 0RF lidocaine 5 % adhesive patch,medicated 1 patch topical DAILY Qty: 15 0RF Rx Instructions: leave on most painful area for up to 12 hrs No Action atorvastatin 80 mg tablet 80 mg PO HS tizanidine 4 mg tablet 4 mg PO DAILY PRN (Reason: Pain) Rx Instructions: for neuropathy pain in legs insulin aspart U-100 [Novolog FlexPen U-100 Insulin] 100 unit/mL (3 mL) insulin pen 20 unit SUBCUT TID cholecalciferol (vitamin D3) 1,250 mcg (50,000 unit) capsule 1,250 mcg PO WEEKLY Linzess 145 mcg capsule 145 mcg PO DAILY Rx Instructions: 30 min before eating Basaglar KwikPen U-100 Insulin 100 unit/mL (3 mL) insulin pen 36 unit SUBCUT HS Eliquis DVT-PE Treat 30D Start 5 mg (74 tabs) tablets,dose pack See Rx Instructions .ROUTE .COMPLEX Qty: 74 0RF Rx Instructions: orally per package directions pantoprazole 20 mg tablet,delayed release (DR/EC) 20 mg PO QAM 42 Days Qty: 42 0RF hydrocodone-acetaminophen 5-325 mg tablet 1 tablet PO Q6H PRN (Reason: Significant pain) Qty: 20 0RF magnesium oxide [MagOx] 400 mg (241.3 mg magnesium) tablet 400 mg PO DAILY Qty: 30 0RF prednisone 20 mg tablet 40 mg PO DAILY Qty: 10 0RF Follow-up/Referrals: Nara,RYAN Art [Primary Care Provider] - Time of Disposition: 22:47 Quality HEART score for chest pain patients History: slightly suspicious ECG: normal Age: < or = to 45 years Risk factors: > or = to 3 risk factors of atherosclerotic disease Troponin: < or = to 1x normal limit Heart score: 2
== END 2024-06-08 23:15 | disposition home or self-care (01) ==
PROVIDERS: Emergency Medicine; Registered Nurse; Emergency Provider Physician Assistant; PCP Registered Nurse
DX: R07.89 Other chest pain (principal); J06.9 Acute upper respiratory infection, unspecified; E78.5 Hyperlipidemia, unspecified; E10.9 Type 1 diabetes mellitus without complications; Z79.01 Long term (current) use of anticoagulants; Z79.4 Long term (current) use of insulin; Z79.899 Other long term (current) drug therapy; R94.31 Abnormal electrocardiogram [ECG] [EKG]; R00.0 Tachycardia, unspecified
CPT/HCPCS: 36415; 71046; 71275; 80053; 83690; 84484; 84702; 85025; 85610; 85730; 93005; 99284; Q9967

== ENCOUNTER 2024-06-14 19:20 | Emergency (ER) | payer MEDICARE, MEDICAID, SELFPAY ==
[2024-06-14 19:23] VITALS: BP 161/100; PULSE 93; RESP 14; TEMP 36.6; O2SAT 100
--- NOTE | 2024-06-14 19:24 | ECG_ITS ---
Test Date: 2024-06-14 19:31:17 Measurements Intervals [place] Rate: 81 P: 36 ID: [id number] QRS: 27 QRSD: 88 T: 13 QT: 360 QTc: 418 Interpretive Statements SINUS RHYTHM BASELINE ARTIFACT- I, II, III, AVR, AVL, AVF NORMAL ECG Compared to ECG 06/08/2024 17:01:03 HEART RATE HAS DECREASED Electronically Signed On 06-15-2024 11:55:03 REHABILITATION TEAM LEAD by Danny Harden D.O.
--- NOTE | 2024-06-14 22:29 | PC.NURSE ---
Pt significant other approached triage desk and started cursing out this RN, SERG Reyes, and ED security. Pt significant other was complaining that it has been 2 hours waiting for a room after being explained 2x the way triage protocols work. Pt significant other further complains that we did not recheck her blood pressure with her having HTN. Pt significant other continued to yell at us about not stroke scaling pt. Pt has a hx of HTN and denied any further worsening of her symptoms. Pt and visitor were reassured that she was being monitored and if she was having symptoms of a stroke RNs would have brought her back immediately. Pt significant other got in ED security's face and started cursing him out, etc. ED security called Martin DELVALLE on pt. Pt significant other stated she would wait for police and speak with them. 5 minutes later PD arrives and we explain what had happened and that we would happily see the pt still but would not like the visitor to stay. PD goes back outside and speaks with pt and visitor. PD stated that visitor and pt are going to different hospital at this time and have left the hospital.
== END 2024-06-14 22:30 | disposition left against medical advice (07) ==
PROVIDERS: Emergency Provider Emergency Medicine; PCP Registered Nurse
DX: R51.9 Headache, unspecified (principal)
CPT/HCPCS: 93005; 99199